=== PATIENT | female | born 1935 | race Caucasian/White ===

== ENCOUNTER → 2016-08-15 | Outpatient (CLI) | payer OTHER ==
[2016-08-15 08:54] LABS: Basophils # (auto) 0 uL; Basophils % (auto) 0.3 % (0.0-2.0); Eosinophils # (auto) 0.3 uL; Eosinophils % (auto) 3.1 % (0.0-7.0); Hematocrit 43.5 % (36.0-46.0); Hemoglobin 14.4 g/dL (12.2-16.2); Lymphocytes # (auto) 3.8 uL; Lymphocytes % (auto) 38.9 % (10.0-50.0); Mean Corpuscular Hemoglobin 28.2 pg (28.0-32.0); Mean Corpuscular Volume 85.6 fL (80.0-100.0); Mean Platelet Volume 9.4 fL (7.4-10.4); Monocytes # (auto) 0.5 uL; Monocytes % (auto) 5.4 % (0.0-12.0); Neutrophils # (auto) 5.2 uL; Neutrophils % (auto) 52.3 % (37.0-80.0); Platelet Count (auto) 290 10^3/uL (140-450); Red Cell Distribution Width 15.6 % (11.6-16.0); White Blood Cell 9.9 10^3/uL (4.4-10.8)
[2016-08-15 09:16] LABS: Potassium 4.1 mmol/L (3.5-5.1)
[2016-08-15 09:20] LABS: Albumin 3.8 g/dL (3.4-5.0); BUN/Creatinine Ratio 12.2; Calcium 9.1 mg/dL (8.5-10.1)
[2016-08-15 09:32] LABS: Bilirubin, Total 0.6 mg/dL (0.2-1.0); Total Protein 7.8 g/dL (6.4-8.2)
== END | disposition home or self-care (01) ==
LOC: LAB 06:44
PROVIDERS: ATTEND Internal Medicine
DX: I10 Essential (primary) hypertension (principal); E03.9 Hypothyroidism, unspecified; N18.3 Chronic kidney disease, stage 3 (moderate); Z12.11 Encounter for screening for malignant neoplasm of colon
CPT/HCPCS: 36415; 80053; 80061; 82043; 82270; 82306; 84443; 85025

== ENCOUNTER → 2017-02-13 | Outpatient (CLI) | payer OTHER ==
[2017-02-13 11:52] LABS: Albumin 3.7 g/dL (3.4-5.0); BUN/Creatinine Ratio 15.3; Bilirubin, Total 0.4 mg/dL (0.2-1.0); Calcium 9.2 mg/dL (8.5-10.1); Potassium 3.9 mmol/L (3.5-5.1); Total Protein 7.7 g/dL (6.4-8.2)
== END | disposition home or self-care (01) ==
LOC: LAB 09:51
PROVIDERS: ATTEND Internal Medicine
DX: I10 Essential (primary) hypertension (principal); E78.5 Hyperlipidemia, unspecified
CPT/HCPCS: 36415; 80053

== ENCOUNTER → 2017-05-12 | Outpatient (CLI) | payer OTHER ==
[2017-05-12 07:28] LABS: Basophils # (auto) 0 uL; Basophils % (auto) 0.4 % (0.0-2.0); Eosinophils # (auto) 0.3 uL; Eosinophils % (auto) 3.4 % (0.0-7.0); Hematocrit 44.7 % (36.0-46.0); Hemoglobin 14.7 g/dL (12.2-16.2); Lymphocytes # (auto) 3.3 uL; Lymphocytes % (auto) 38.2 % (10.0-50.0); Mean Corpuscular Hemoglobin 29.2 pg (28.0-32.0); Mean Corpuscular Volume 88.6 fL (80.0-100.0); Monocytes # (auto) 0.6 uL; Neutrophils # (auto) 4.4 uL; Nucleated Red Blood Cells % 0.1 %; Platelet Count (auto) 238 10^3/uL (140-450); Red Blood Cells 5.04 10^6/uL (4.0-5.20); White Blood Cell 8.6 10^3/uL (4.4-10.8)
[2017-05-12 08:30] LABS: Albumin 3.7 g/dL (3.4-5.0); BUN/Creatinine Ratio 14.1; Bilirubin, Total 0.4 mg/dL (0.2-1.0); Calcium 9.2 mg/dL (8.5-10.1); Potassium 4.1 mmol/L (3.5-5.1); Total Protein 7.8 g/dL (6.4-8.2)
== END | disposition home or self-care (01) ==
LOC: LAB 06:38
PROVIDERS: ATTEND Internal Medicine
DX: Z12.11 Encounter for screening for malignant neoplasm of colon (principal); I12.9 Hypertensive chronic kidney disease with stage 1 through stage 4 chronic kidney disease, or unspecified chronic kidney disease; N18.3 Chronic kidney disease, stage 3 (moderate); E78.5 Hyperlipidemia, unspecified
CPT/HCPCS: 36415; 80053; 80061; 82270; 82306; 85025

== ENCOUNTER → 2017-05-23 | Outpatient (CLI) | payer OTHER | END | disposition home or self-care (01) | LOC: LAB 10:13 | PROVIDERS: ATTEND Internal Medicine | DX: E03.9 Hypothyroidism, unspecified (principal) | CPT/HCPCS: 36415; 84443 ==

== ENCOUNTER → 2017-11-14 | Outpatient (CLI) | payer OTHER ==
[2017-11-14 08:52] LABS: Albumin 3.8 g/dL (3.4-5.0); BUN/Creatinine Ratio 9.9; Bilirubin, Total 0.5 mg/dL (0.2-1.0); Potassium 3.8 mmol/L (3.5-5.1); Total Protein 7.7 g/dL (6.4-8.2)
== END | disposition home or self-care (01) ==
LOC: LAB 07:17
PROVIDERS: ATTEND Internal Medicine
DX: I12.9 Hypertensive chronic kidney disease with stage 1 through stage 4 chronic kidney disease, or unspecified chronic kidney disease (principal); N18.3 Chronic kidney disease, stage 3 (moderate); E78.5 Hyperlipidemia, unspecified; E03.9 Hypothyroidism, unspecified
CPT/HCPCS: 36415; 80053

== ENCOUNTER → 2018-06-14 | Outpatient (CLI) | payer OTHER ==
[2018-06-14 07:35] LABS: Basophils # (auto) 0.1 uL; Basophils % (auto) 0.6 % (0.0-2.0); Eosinophils # (auto) 0.3 uL; Eosinophils % (auto) 3.2 % (0.0-7.0); Hematocrit 43.6 % (36.0-46.0); Hemoglobin 14.8 g/dL (12.2-16.2); Lymphocytes # (auto) 3.5 uL; Lymphocytes % (auto) 36.4 % (10.0-50.0); Mean Corpuscular Hemoglobin 30.4 pg (28.0-32.0); Mean Corpuscular Hgb Conc. 33.8 g/dL (32.0-36.0); Mean Corpuscular Volume 89.9 fL (80.0-100.0); Monocytes # (auto) 0.7 uL; Monocytes % (auto) 7.2 % (0.0-12.0); Neutrophils # (auto) 5.1 uL; Neutrophils % (auto) 52.6 % (37.0-80.0); Nucleated Red Blood Cells % 0.1 %; Platelet Count (auto) 233 10^3/uL (140-450); Red Blood Cells 4.85 10^6/uL (4.0-5.20); Red Cell Distribution Width 13.4 % (11.8-14.3); White Blood Cell 9.6 10^3/uL (4.4-10.8)
[2018-06-14 07:56] LABS: Albumin 3.7 g/dL (3.4-5.0); Calcium 9.5 mg/dL (8.5-10.1); Potassium 3.5 mmol/L (3.5-5.1)
[2018-06-14 07:59] LABS: BUN/Creatinine Ratio 11.4; Bilirubin, Total 0.7 mg/dL (0.2-1.0); Total Protein 7.6 g/dL (6.4-8.2)
== END | disposition home or self-care (01) ==
LOC: LAB 07:11
PROVIDERS: ATTEND Internal Medicine
DX: Z12.11 Encounter for screening for malignant neoplasm of colon (principal); E03.9 Hypothyroidism, unspecified; I12.9 Hypertensive chronic kidney disease with stage 1 through stage 4 chronic kidney disease, or unspecified chronic kidney disease; N18.3 Chronic kidney disease, stage 3 (moderate); E78.5 Hyperlipidemia, unspecified
CPT/HCPCS: 36415; 80053; 80061; 82274; 82306; 84443; 85025

== ENCOUNTER → 2018-06-29 | Outpatient (CLI) | payer OTHER | END | disposition home or self-care (01) | LOC: LAB 12:59 | PROVIDERS: ATTEND Internal Medicine | DX: K92.1 Melena (principal) | CPT/HCPCS: 82270 ==

== ENCOUNTER → 2019-06-12 | Outpatient (CLI) | payer OTHER ==
[2019-06-12 07:33] LABS: Basophils # (auto) 0 10 ^3/uL (0-0.2); Basophils % (auto) 0.5 % (0.0-2.0); Eosinophils # (auto) 0.2 10 ^3/uL (0-0.8); Eosinophils % (auto) 2.2 % (0.0-7.0); Hematocrit 43.8 % (36.0-46.0); Hemoglobin 14.8 g/dL (12.2-16.2); Lymphocytes # (auto) 3.3 10 ^3/uL (0.4-5.4); Lymphocytes % (auto) 36.6 % (10.0-50.0); Mean Corpuscular Hemoglobin 30.1 pg (28.0-32.0); Mean Corpuscular Hgb Conc. 33.9 g/dL (32.0-36.0); Mean Corpuscular Volume 88.7 fL (80.0-100.0); Monocytes # (auto) 0.6 10 ^3/uL (0-1.3); Monocytes % (auto) 6.9 % (0.0-12.0); Neutrophils # (auto) 4.8 10 ^3/uL (1.6-8.6); Neutrophils % (auto) 53.8 % (37.0-80.0); Platelet Count (auto) 210 10^3/uL (140-450); Red Blood Cells 4.93 10^6/uL (4.0-5.20); White Blood Cell 8.9 10^3/uL (4.4-10.8)
[2019-06-12 07:59] LABS: Albumin 3.7 g/dL (3.4-5.0); Calcium 8.7 mg/dL (8.5-10.1); Potassium 3.9 mmol/L (3.5-5.1)
[2019-06-12 08:03] LABS: BUN/Creatinine Ratio 11.7; Bilirubin, Total 0.6 mg/dL (0.2-1.0); Total Protein 7.6 g/dL (6.4-8.2)
== END | disposition home or self-care (01) ==
LOC: LAB 07:08
PROVIDERS: ATTEND Internal Medicine
DX: Z00.00 Encounter for general adult medical examination without abnormal findings (principal); I12.0 Hypertensive chronic kidney disease with stage 5 chronic kidney disease or end stage renal disease; N18.5 Chronic kidney disease, stage 5; E78.5 Hyperlipidemia, unspecified; Z12.11 Encounter for screening for malignant neoplasm of colon
CPT/HCPCS: 36415; 80053; 80061; 82274; 84443; 85025

== ENCOUNTER → 2020-04-02 | Outpatient (CLI) | payer OTHER ==
[2020-04-02 10:29] LABS: Albumin 3.7 g/dL (3.4-5.0); Calcium 8.8 mg/dL (8.5-10.1); Potassium 4.1 mmol/L (3.5-5.1)
[2020-04-02 10:32] LABS: Bilirubin, Total 0.5 mg/dL (0.2-1.0); Total Protein 7.6 g/dL (6.4-8.2)
== END | disposition home or self-care (01) ==
LOC: LAB 09:54
PROVIDERS: ATTEND Internal Medicine
DX: I12.9 Hypertensive chronic kidney disease with stage 1 through stage 4 chronic kidney disease, or unspecified chronic kidney disease (principal); N18.30 Chronic kidney disease, stage 3 unspecified; Z78.9 Other specified health status
CPT/HCPCS: 36415; 80053

== ENCOUNTER → 2020-06-15 | Outpatient (CLI) | payer OTHER ==
[2020-06-15 08:12] LABS: Basophils # (auto) 0 10 ^3/uL (0-0.2); Basophils % (auto) 0.3 % (0.0-2.0); Eosinophils # (auto) 0.3 10 ^3/uL (0-0.8); Eosinophils % (auto) 2.8 % (0.0-7.0); Hematocrit 42.1 % (36.0-46.0); Hemoglobin 14.1 g/dL (12.2-16.2); Lymphocytes # (auto) 3.6 10 ^3/uL (0.4-5.4); Lymphocytes % (auto) 40.3 % (10.0-50.0); Mean Corpuscular Hgb Conc. 33.6 g/dL (32.0-36.0); Mean Corpuscular Volume 89.3 fL (80.0-100.0); Monocytes # (auto) 0.7 10 ^3/uL (0-1.3); Monocytes % (auto) 7.6 % (0.0-12.0); Neutrophils # (auto) 4.4 10 ^3/uL (1.6-8.6); Nucleated Red Blood Cells % 0.1 %; Platelet Count (auto) 237 10^3/uL (140-450); Red Blood Cells 4.71 10^6/uL (4.0-5.20); Red Cell Distribution Width 14.4 % (11.8-14.3)
[2020-06-15 09:40] LABS: Albumin 3.5 g/dL (3.4-5.0); BUN/Creatinine Ratio 13.9; Bilirubin, Total 0.6 mg/dL (0.2-1.0); Calcium 9.4 mg/dL (8.5-10.1); Total Protein 7.3 g/dL (6.4-8.2)
== END | disposition home or self-care (01) ==
LOC: LAB 07:16
PROVIDERS: ATTEND Internal Medicine
DX: Z00.00 Encounter for general adult medical examination without abnormal findings (principal); Z12.11 Encounter for screening for malignant neoplasm of colon; I10 Essential (primary) hypertension; E78.5 Hyperlipidemia, unspecified
CPT/HCPCS: 36415; 80053; 80061; 82274; 84439; 84443; 85025

== ENCOUNTER → 2021-12-08 | Outpatient (CLI) | payer OTHER ==
[2021-12-08 10:58] LABS: Potassium 3.9 mmol/L (3.5-5.1)
[2021-12-08 11:05] LABS: Albumin 3.5 g/dL (3.4-5.0); BUN/Creatinine Ratio 9.6; Bilirubin, Total 0.5 mg/dL (0.2-1.0); Calcium 8.6 mg/dL (8.5-10.1); Total Protein 6.9 g/dL (6.4-8.2)
== END | disposition home or self-care (01) ==
LOC: LAB 09:50
PROVIDERS: ATTEND Internal Medicine
DX: I10 Essential (primary) hypertension (principal); E78.5 Hyperlipidemia, unspecified
CPT/HCPCS: 36415; 80053

== ENCOUNTER → 2022-07-18 | Outpatient (CLI) | payer OTHER ==
[2022-07-18 07:09] LABS: Basophils # (auto) 0 10 ^3/uL (0-0.2); Basophils % (auto) 0.1 % (0.0-2.0); Eosinophils # (auto) 0.3 10 ^3/uL (0-0.8); Eosinophils % (auto) 2.6 % (0.0-7.0); Hematocrit 44.3 % (36.0-46.0); Hemoglobin 14.9 g/dL (12.2-16.2); Lymphocytes # (auto) 4.3 10 ^3/uL (0.4-5.4); Lymphocytes % (auto) 41.8 % (10.0-50.0); Mean Corpuscular Hemoglobin 30.3 pg (28.0-32.0); Mean Corpuscular Hgb Conc. 33.6 g/dL (32.0-36.0); Mean Corpuscular Volume 90.3 fL (80.0-100.0); Monocytes # (auto) 0.6 10 ^3/uL (0-1.3); Monocytes % (auto) 6.1 % (0.0-12.0); Neutrophils # (auto) 5.1 10 ^3/uL (1.6-8.6); Neutrophils % (auto) 49.4 % (37.0-80.0); Red Blood Cells 4.91 10^6/uL (4.0-5.20); Red Cell Distribution Width 14.2 % (11.8-14.3); White Blood Cell 10.3 10^3/uL (4.4-10.8)
[2022-07-18 07:10] LABS: Urine Bacteria FEW /hpf (None Seen); Urine Blood Negative /uL (Negative); Urine Specific Gravity 1.011 (1.001-1.035); Urine WBC 5 /hpf (0 - 5)
[2022-07-18 07:29] LABS: Potassium 3.9 mmol/L (3.5-5.1)
[2022-07-18 07:48] LABS: Albumin 3.6 g/dL (3.4-5.0); BUN/Creatinine Ratio 11.8 (10.0-20.0); Bilirubin, Total 0.6 mg/dL (0.2-1.0); Calcium 9.5 mg/dL (8.5-10.1); Total Protein 7.4 g/dL (6.4-8.2)
== END | disposition home or self-care (01) ==
LOC: LAB 06:19
PROVIDERS: ATTEND Internal Medicine
DX: Z13.1 Encounter for screening for diabetes mellitus (principal); Z29.9 Encounter for prophylactic measures, unspecified; E03.9 Hypothyroidism, unspecified; E66.9 Obesity, unspecified
CPT/HCPCS: 36415; 80053; 80061; 81001; 83036; 84439; 84443; 85025

== ENCOUNTER → 2022-07-25 | Outpatient (CLI) | payer OTHER ==
[2022-07-25 10:47] LABS: Urine Bacteria NONE SEEN /hpf (None Seen); Urine Blood Negative /uL (Negative); Urine Mucus FEW (None Seen); Urine Specific Gravity 1.017 (1.001-1.035); Urine WBC 19 /hpf (0 - 5)
== END | disposition home or self-care (01) ==
LOC: LAB 10:22
PROVIDERS: ATTEND Internal Medicine
DX: R82.90 Unspecified abnormal findings in urine (principal)
CPT/HCPCS: 81001; 87086; 87088; 87186

== ENCOUNTER → 2024-03-19 | Outpatient (CLI) | payer OTHER ==
[2024-03-19 07:05] LABS: Basophils # (auto) 0 10 ^3/uL (0-0.2); Basophils % (auto) 0.3 % (0.0-2.0); Eosinophils # (auto) 0.3 10 ^3/uL (0-0.8); Eosinophils % (auto) 2.5 % (0.0-7.0); Hematocrit 47.3 % (36.0-46.0); Hemoglobin 15.8 g/dL (12.2-16.2); Lymphocytes # (auto) 4.7 10 ^3/uL (0.4-5.4); Lymphocytes % (auto) 41.3 % (10.0-50.0); Mean Corpuscular Hemoglobin 30.3 pg (28.0-32.0); Mean Corpuscular Hgb Conc. 33.5 g/dL (32.0-36.0); Mean Corpuscular Volume 90.7 fL (80.0-100.0); Monocytes # (auto) 0.8 10 ^3/uL (0-1.3); Monocytes % (auto) 6.7 % (0.0-12.0); Neutrophils # (auto) 5.6 10 ^3/uL (1.6-8.6); Neutrophils % (auto) 49.2 % (37.0-80.0); Platelet Count (auto) 227 10^3/uL (140-450); Red Blood Cells 5.22 10^6/uL (4.0-5.20); Red Cell Distribution Width 13.9 % (11.8-14.3); White Blood Cell 11.4 10^3/uL (4.4-10.8)
[2024-03-19 07:30] LABS: Albumin 4.4 g/dL (3.2-4.8); Alkaline Phosphatase 72 U/L (46-116); Anion Gap 9 (5-15); BUN/Creatinine Ratio 12.9 (10.0-20.0); Blood Urea Nitrogen 11 mg/dL (9-23); Calcium 10.2 mg/dL (8.7-10.4); Carbon Dioxide 30 mmol/L (20-31); Chloride 105 mmol/L (98-107); Potassium 4.3 mmol/L (3.5-5.1); Sodium 144 mmol/L (136-145)
[2024-03-19 07:31] LABS: Bilirubin, Total 0.8 mg/dL (0.2-1.0)
[2024-03-19 07:33] LABS: Alanine Aminotransferase 9 U/L (7-40); Aspartate Aminotransferase 11 U/L (13-40); Glucose 108 mg/dL (74-106)
[2024-03-19 08:03] LABS: Cholesterol 170 mg/dL (< 200); LDL Cholesterol 95 mg/dL (< 100)
[2024-03-19 08:04] LABS: HDL Cholesterol 50 mg/dL (40-59)
[2024-03-19 08:09] LABS: Triglycerides 233 mg/dL (< 150)
[2024-03-19 11:25] LABS: Urine Bacteria None Seen /hpf (None Seen)
[2024-03-19 12:23] LABS: Urine Blood Negative /uL (Negative); Urine Clarity Turbid (Clear); Urine Color Yellow (Yellow); Urine Mucus FEW (None Seen); Urine Protein, UAD 1+ (Negative); Urine Specific Gravity 1.026 (1.001-1.035); Urine Squamous Epithelial Cell FEW /hpf (<5); Urine Urobilinogen Normal (Negative); Urine WBC 27 /hpf (0 - 5); Urine pH 5.5 (5.0-9.0)
== END | disposition home or self-care (01) ==
LOC: LAB 06:31
PROVIDERS: ATTEND Internal Medicine
DX: Z00.01 Encounter for general adult medical examination with abnormal findings (principal); I12.9 Hypertensive chronic kidney disease with stage 1 through stage 4 chronic kidney disease, or unspecified chronic kidney disease; E78.2 Mixed hyperlipidemia; R73.03 Prediabetes; E03.9 Hypothyroidism, unspecified
CPT/HCPCS: 36415; 80053; 80061; 81001; 83036; 84439; 84443; 85025

== ENCOUNTER → 2024-06-25 | Outpatient (CLI) | payer OTHER ==
[2024-06-25 10:11] LABS: Basophils # (auto) 0 10 ^3/uL (0-0.2); Basophils % (auto) 0.2 % (0.0-2.0); Eosinophils # (auto) 0.2 10 ^3/uL (0-0.8); Eosinophils % (auto) 1.8 % (0.0-7.0); Hematocrit 44.9 % (36.0-46.0); Hemoglobin 14.7 g/dL (12.2-16.2); Lymphocytes # (auto) 3.1 10 ^3/uL (0.4-5.4); Lymphocytes % (auto) 30.5 % (10.0-50.0); Mean Corpuscular Hemoglobin 29.5 pg (28.0-32.0); Mean Corpuscular Hgb Conc. 32.6 g/dL (32.0-36.0); Mean Corpuscular Volume 90.3 fL (80.0-100.0); Monocytes # (auto) 0.7 10 ^3/uL (0-1.3); Neutrophils # (auto) 6.2 10 ^3/uL (1.6-8.6); Neutrophils % (auto) 60.5 % (37.0-80.0); Nucleated Red Blood Cells % 0.1 %; Platelet Count (auto) 213 10^3/uL (140-450); Red Blood Cells 4.97 10^6/uL (4.0-5.20); Red Cell Distribution Width 13.9 % (11.8-14.3); White Blood Cell 10.2 10^3/uL (4.4-10.8)
== END | disposition home or self-care (01) ==
LOC: LAB 08:53
PROVIDERS: ATTEND Internal Medicine
DX: E78.2 Mixed hyperlipidemia (principal); D72.829 Elevated white blood cell count, unspecified
CPT/HCPCS: 36415; 85025

== ENCOUNTER 2024-10-03 07:54 | Inpatient (IN) | payer OTHER ==
[~2024-10-03] VITALS: Ht 157.5 cm; Wt 76.9 kg
--- NOTE | 2024-10-03 08:29 | ED.PDOC ---
History of Present Illness HPI Comments Patient is a 88-year-old female with a medical history of hypothyroidism, hypertension, age-related macular degeneration presented with a chief complaint of generalized weakness and shortness of breath. She reports that since Monday morning she has been having shortness of breath and has not been able to go in a regular walk in the morning. Shortness of breath worsens on exertion. Patient also reports since the last 1 month she has been noticing blood in the toilet that whenever she goes to urinate early in the morning. Patient denied any chest pain, abdominal pain, palpitations, lower extremity pain. She is feeling weak and easily tired. Was arrival patient's blood pressure was 142/79 mmHg, heart rate 122 per minute and she was saturating 94% on room air. 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: Denies all ELECTRONIC FUNDS TRANSFER COORDINATOR Hx Family History Family History: Reviewed,noncontributory to illness Social History Smoker: Non-Smoker Alcohol: Denies ETOH Use Drugs: Denies Drug Use Lives In: Home Constitutional: reports: fatigue, weakness EENTM: denies: blurred vision, double vision, ear bleeding, ear discharge, ear drainage, ear pain, ear ringing, eye pain, eye redness, hearing loss, mouth pain, mouth swelling, nasal discharge, nose bleeding, nose congestion, nose pain, photophobia, tearing, throat pain, throat swelling, voice changes, others Respiratory: reports: shortness of breath, SOB with excertion Cardiovascular: denies: chest pain, dizzy spells, diaphoresis, Dyspnea on exertion, edema, irregular heart beat, left arm pain, lightheadedness, palpitations, PND, syncope, others Gastrointestinal: denies: abdomen distended, abdominal pain, blood streaked bowels, constipated, diarrhea, dysphagia, difficulty swallowing, hematemesis, melena, nausea, poor appetite, poor fluid intake, rectal bleeding, rectal pain, vomiting, others Genitourinary: reports: hematuria Neurological: denies: dizziness, fainting, headache, left sided numbness, left sided weakness, numbness, paresthesia, pre-existing deficit, right sided numbness, right sided weakness, seizure, speech problems, tingling, tremors, weakness, others Musculoskeletal: denies: back pain, gout, joint pain, joint swelling, muscle pain, muscle stiffness, neck pain, others Integumetry: denies: bruises, change in color, change in hair/nails, dryness, laceration, lesions, lumps, rash, wounds, others Allergic/Immunocompromised: denies: Difficulty Healing, Frequent Infections, Hives, Itching, others Hematologic/Lymphatic: denies: anemia, blood clots, easy bleeding, easy bruising, swollen glands, others Endocrine: denies: excessive hunger, excessive sweating, excessive thirst, excessive urination, flushing, intolerance to cold, intolerance to heat, unexplained weight gain, unexplained weight loss, others Psychiatric: denies: anxiety, bipolar disorder, depression, hopeless, panic disorder, schizophrenia, sleepless, suicidal, others Physical Exam General Appearance: Mild Distress HEENT: PERRL/EOMI, Pharynx Normal Neck: Full Range of Motion, Non-Tender, Normal Inspection Respiratory: Chest Non-Tender, Lungs Clear, Normal Breath Sounds, Respiratory Distress Cardiovascular: No Edema, No JVD, No Murmur, Regular Rate/Rhythm Breast Exam: Deferred Gastrointestinal: No Organomegaly, Non Tender, Normal Bowel Sounds Genitalia: Deferred Pelvic: Deferred Rectal: Deferred Extremities: Normal capillary refill, Normal range of motion, Non-tender, No pedal edema Neurologic: Alert, clerical coordinator II-XII nml as Tested, No Motor Deficits, No Sensory Deficits Cerebellar Function: NOT DONE Reflexes: NOT DONE Skin: Dry, Normal Color, Warm Peripheral Pulses: 2+ dorsalis pedis (R), 2+ dorsalis pedis (L), 2+ Radial (R), 2+ Radial (L) Lymphatic: NOT DONE Was a procedure done? Was a procedure done?: No EKG EKG : Pulse Rate (adult): 107 [place]: LAD Cardiac Rhythm: NSR Block: None Hypertrophy: None ST: Normal Differential Dx Considerations may include: anemia, uti, pneumonia, X-Ray, Labs, Meds, VS Vital Signs Date Time Temp Pulse Resp B/P (MAP) Pulse Ox O2 Delivery O2 Flow Rate FiO2 7/24/25 10:00 97.7 85 16 145/65 (91) 96 97.7 10/03/24 09:25 96 Nasal Cannula* 2 28 10/03/24 09:19 107 10/03/24 09:09 95 24 145/96 (112) 95 10/03/24 08:40 95 24 95 Nasal Cannula* 2 28 10/03/24 08:06 107 10/03/24 07:56 98.8 122 24 142/79 (100) 94 98.8 Lab Test 10/03/24 10:26 10/03/24 09:31 10/03/24 08:36 10/03/24 08:15 Range/Units Lactic Acid Level 2.5 *H 3.8 *H 0.4-2.0 mmol/L POC Glucose 129 H 70-106 mg/dl Urine Color Dark-red Yellow Urine Clarity Ex.turbid Clear Urine pH 6.0 5.0-9.0 Urine Specific [place] 1.029 1.001-1.035 Urine Protein 2+ H Negative Urine Ketones Negative Negative Urine Blood 3+ H Negative /uL Urine Nitrite Negative Negative Urine Bilirubin Negative Negative Urine Urobilinogen Normal Negative mg/dL Urine Leukocyte Esterase 1+ Negative /uL Urine RBC None seen 0 - 4 /hpf Urine Microscopic WBC 0-5 /HPF Urine Squamous Epithelial Cells None seen <5 /hpf Urine Bacteria None seen None Seen /hpf Urine Glucose Normal Normal mg/dL Test 10/03/24 08:11 Range/Units White Blood Count 12.3 H 4.4-10.8 10^3/uL Red Blood Count 3.62 L 4.0-5.20 10^6/uL Hemoglobin 10.4 L 12.2-16.2 g/dL Hematocrit 32.1 L 36.0-46.0 % Mean Corpuscular Volume 88.8 80.0-100.0 fL Mean Corpuscular Hemoglobin 28.7 28.0-32.0 pg Mean Corpuscular Hemoglobin Concent 32.3 32.0-36.0 g/dL Red Cell Distribution Width 14.1 11.8-14.3 % Platelet Count 319 140-450 10^3/uL Mean Platelet Volume 8.7 6.9-10.8 fL Neutrophils (%) (Auto) 59.8 37.0-80.0 % Lymphocytes (%) (Auto) 31.3 10.0-50.0 % Monocytes (%) (Auto) 6.5 0.0-12.0 % Eosinophils (%) (Auto) 2.1 0.0-7.0 % Basophils (%) (Auto) 0.3 0.0-2.0 % Neutrophils # (Auto) 7.3 1.6-8.6 10 ^3/uL Lymphocytes # (Auto) 3.8 0.4-5.4 10 ^3/uL Monocytes # (Auto) 0.8 0-1.3 10 ^3/uL Eosinophils # (Auto) 0.3 0-0.8 10 ^3/uL Basophils # (Auto) 0 0-0.2 10 ^3/uL Nucleated Red Blood Cells 0.0 % Sodium Level 143 136-145 mmol/L Potassium Level 3.3 L 3.5-5.1 mmol/L Chloride Level 106 98-107 mmol/L Carbon Dioxide Level 24 20-31 mmol/L Anion Gap 13 5-15 Blood Urea Nitrogen 9 9-23 mg/dL Creatinine 0.85 0.550-1.02 mg/dL Glomerular Filtration Rate Calc 66 >90 mL/min BUN/Creatinine Ratio 10.6 10.0-20.0 Serum Glucose 178 H 74-106 mg/dL Calcium Level 9.5 8.7-10.4 mg/dL B-Type Natriuretic Peptide 54.70 0-100 pg/mL Current Medications Medications (Trade) Dose Ordered Sig/Icsco Route Start Time Stop Time Status Last Admin Sodium Chloride 500 ml @ 500 mls/hr Q1H ONCE IV 10/03/24 08:30 10/03/24 09:29 DC 10/03/24 08:43 Ceftriaxone Sodium 50 ml @ 100 mls/hr ONCE ONCE IV 10/03/24 09:30 10/03/24 10:27 DC 10/03/24 10:53 Sodium Chloride 1,000 ml @ 1,000 mls/hr Q1H ONCE IV 10/03/24 09:30 10/03/24 10:29 DC 10/03/24 10:54 Potassium Bicarbonate (Klor-Con/Ef) 25 meq ONCE ONCE PO 10/03/24 09:45 10/03/24 10:27 DC 10/03/24 10:53 Patient is a 88-year-old female came in with generalized weakness and shortness of breath. Patient had clear lung sounds on physical examination and regular S1-S2 were heard. Patient did not have any abdominal tenderness, chest pain, cough/phlegm. Initial labs showed anemia with the elevated white blood cell count and elevated lactic acid. Patient was tachycardic and had increased respiratory rate a following which blood cultures were drawn and she was given IV antibiotics and IV fluids under the suspected sepsis protocol. Urine was dark red in color and on analysis showed 3+ blood. CT abdomen pelvis with IV contrast was done and results are pending. Patient will need further inpatient management Time of 1ST Reevaluation: 09:45 Reevaluation 1ST: Improved Patient Education/Counseling: Diagnosis, Treatment Family Education/Counseling: Diagnosis, Treatment SEPSIS Sepsis Screen Date sepsis recognized/suspect: Oct 03, 2024 Time Sepsis recognized/suspect: 755 Recent Procedure: No On Antibiotic Therapy: No Respiratory Rate >20: No Heart Rate >90: Yes Temp<36 C (96.8 F) or >38.3 C: No SBP <90 or MAP <65 mmHG: No New Acute Mental Status Change: No Is the patient on CPAP, BIPAP,: No Physician Orders Electrocardigram (10/03/24 08:14) Chest Xray 1 View (10/03/24 08:17) Blood Culture (10/03/24 08:17) Heplock Iv (10/03/24 ) Urine Bacterial Culture (10/03/24 09:29) Vancomycin Per Pharmacy (10/03/24 09:30) Covid19 Antigen Shira (10/03/24 ) Rapid Influenza A&B (10/03/24 09:35) Ct Ab Pel Wo Con-No Oral Or Iv (10/03/24 10:48) Ct Ab Pel With Iv Con Only (10/03/24 11:00) Vancomycin 1gm/200ml Pm (10/03/24 11:45) Vancomycin,Random (10/04/24 04:00) Creatinine (10/04/24 04:00) Vital Signs Date Time Temp Pulse Resp B/P (MAP) Pulse Ox O2 Delivery O2 Flow Rate FiO2 10/03/24 10:00 97.7 85 16 145/65 (91) 96 97.7 10/03/24 09:25 96 Nasal Cannula* 2 28 10/03/24 09:19 107 10/03/24 09:09 95 24 145/96 (112) 95 10/03/24 08:40 95 24 95 Nasal Cannula* 2 28 10/03/24 08:06 107 10/03/24 07:56 98.8 122 24 142/79 (100) 94 98.8 Laboratory Tests Test 10/03/24 08:11 10/03/24 08:36 10/03/24 10:26 White Blood Count 12.3 10^3/uL (4.4-10.8) H Lactic Acid Level 3.8 mmol/L (0.4-2.0) *H 2.5 mmol/L (0.4-2.0) *H Medications Medications Dose Ordered Sig/Cisco Route Start Time Stop Time Status Last Admin Dose Admin Ceftriaxone Sodium 50 ml @ 100 mls/hr ONCE ONCE IV 10/03/24 09:30 10/03/24 10:27 DC 10/03/24 10:53 Potassium Bicarbonate 25 meq ONCE ONCE PO 10/03/24 09:45 10/03/24 10:27 DC 10/03/24 10:53 Sodium Chloride 500 ml @ 500 mls/hr Q1H ONCE IV 10/03/24 08:30 10/03/24 09:29 DC 10/03/24 08:43 Sodium Chloride 1,000 ml @ 1,000 mls/hr Q1H ONCE IV 10/03/24 09:30 10/03/24 10:29 DC 10/03/24 10:54 Departure 1 Departure Time of Disposition: 11:50 Impression: Primary Impression: Generalized weakness Additional Impression: Shortness of breath Disposition: ADMITTED INPATIENT Condition: Stable Critical Care Note Critical Care Time?: No Stability Stability form required: No Heart Score Heart Score: Heart Score Response (Comments) Value History N/A 0 EKG N/A 0 Age N/A 0 Risk Factors N/A 0 Troponin N/A 0 Total 0 DUSTIN SÁNCHEZ RESIDENT Oct 03, 2024 08:28
[2024-10-03 08:40] VITALS: PULSE 95; RESP 24; O2SAT 95
[2024-10-03 08:41] LABS: Hematocrit 32.1 % (36.0-46.0); Hemoglobin 10.4 g/dL (12.2-16.2); Mean Corpuscular Hemoglobin 28.7 pg (28.0-32.0); Mean Corpuscular Volume 88.8 fL (80.0-100.0); Nucleated Red Blood Cells % 0.0 %
[2024-10-03] MEDS: SODIUM CHLORIDE 0.9% 500 ML IV ONE (08:43)
[2024-10-03 08:47] LABS: Chloride 106 mmol/L (98-107); Sodium 143 mmol/L (136-145)
[2024-10-03 08:48] LABS: Anion Gap 13 (5-15); Calcium 9.5 mg/dL (8.7-10.4); Carbon Dioxide 24 mmol/L (20-31); Potassium 3.3 mmol/L (3.5-5.1)
[2024-10-03 08:53] LABS: BUN/Creatinine Ratio 10.6 (10.0-20.0); Blood Urea Nitrogen 9 mg/dL (9-23)
[2024-10-03 08:56] LABS: Glucose 178 mg/dL (74-106)
--- NOTE | 2024-10-03 09:11 | DVH ---
EXAM: XY CHEST XRAY 1 VIEW Indication: SOB Technique: Single frontal view of the chest was obtained Comparison: None FINDINGS: Lines and Tubes: None Lungs: No focal consolidation. Pleura: No effusion. No pneumothorax. Cardiomediastinal contours: Unremarkable. Atherosclerotic vascular calcifications of the thoracic ao rta are noted. Bones: No acute osseous abnormality. IMPRESSION: No acute cardiopulmonary disease.
[2024-10-03 09:14] LABS: Lactic Acid w/Reflex 3.8 mmol/L (0.4-2.0)
[2024-10-03] MEDS ORDERED: VANCOMYCIN PER PHARMACY 0 MG IV SCH (09:30)
[2024-10-03] MEDS: cefTRIAXone 1GM/50ML D5W 50 ML IV ONE (10:53)
[2024-10-03] MEDS: POTASSIUM EFFERVESENT TAB 25 MEQ PO ONE (10:53)
[2024-10-03] MEDS: SODIUM CHLORIDE 0.9% 1,000 ML IV ONE (10:54)
[2024-10-03 11:06] LABS: Urine Protein, UAD 2+ (Negative)
--- NOTE | 2024-10-03 12:17 | DVH ---
Exam: CT CT AB PEL WITH IV CON ONLY History: painless hematuria COMPARISON: None Technique: Multidetector spiral CT of the abdomen and pelvis was performed from lung bases to pubic s ymphysis. Intravenous contrast was administered during this examination. Portal venous imaging was o btained. Axial, coronal and sagittal multiplanar reformats were performed by the technologist on a [id number] workstation. Radiation Dose : 1. Abdomen/Pelvis: CTDIvol 21.43mGy, DLP 1169.19 mGy*cm. Findings: Lung Bases: No acute or significant lung base finding. Normal heart size. No pleural or pericardial effusion. Liver: The liver is normal in size. No focal lesions. Normal hepatic vascular enhancement. Gallbladder and Biliary Tree: Gallbladder is surgically absent. Spleen: Unremarkable Pancreas: The pancreas is normal in appearance without focal lesions or abnormal enhancement. Adrenal Glands: Unremarkable Kidneys: No hydronephrosis. Bladder: Unremarkable Bowel: The stomach is grossly normal in appearance. Diverticulosis. The appendix is not visualized; h owever, no secondary findings of acute appendicitis identified. Ascites: Absent Lymphadenopathy: Right inguinal lymph node measures 2.3 cm. Abdominal Wall and Mesentery: Unremarkable. Vasculature: The visualized abdominal aorta is normal in size and caliber. There is calcified atheros clerotic plaque involving the aorta and its branches. Abdominal and pelvic vessels demonstrate normal enhancement. Pelvic Organs: Unremarkable Musculoskeletal: No aggressive focal bony lesions, acute fractures or dislocation. Degenerative chavira es of the spine. IMPRESSION: Prominent right inguinal lymph node measures 2.3 cm; nonspecific. Diverticulosis.
[2024-10-03] MEDS ORDERED: ACETAMINOPHEN 325 MG TAB PO PRN (14:30)
[2024-10-03] MEDS ORDERED: ONDANSETRON HCL 4 MG/2 ML VIAL IV PRN (14:30)
[2024-10-03 14:59] LABS: Iron 26.0 ug/dL (50-170); Total Iron Binding Capacity 290.0 ug/dL (250-425)
[2024-10-03 17:00] VITALS: BP 138/72; PULSE 86; RESP 16; TEMP 97.7; O2SAT 90
[2024-10-03] MEDS ORDERED: LEVO88CA3 PO (17:32)
[2024-10-03] MEDS ORDERED: ALBU1NEB5 IN (17:32)
[2024-10-03] MEDS ORDERED: METO-289 PO (17:32)
[2024-10-03] MEDS ORDERED: SIMV20TA20 PO (17:32)
--- NOTE | 2024-10-03 19:09 | ECG ---
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
--- NOTE | 2024-10-03 19:38 | DVHHP2 ---
History of Present Illness Reason for Visit: Blood in the urine History of Present Illness 88-year-old female presents for evaluation of hematuria. Patient reports for the past month noticing blood in her urine when urinating early in the morning. She also reports generalized weakness with mild shortness for breath. Denies chest pain or palpitations. No fever or chills. No abdominal pain. Past Medical History Thyroid, hypertension, dyslipidemia Past Surgical History Hysterectomy, cholecystectomy Family History Noncontributory Smoke: No ALCOHOL: none Drugs: None Lives: with Family Review of Systems Review of Systems Review of systems are currently negative otherwise addressed in HPI. Allergies: Coded Allergies: NO KNOWN ALLERGIES (Unverified , 10/03/24) Medications Current Medications Medications Dose Ordered Sig/Cisco Route Start Time Stop Time Status Last Admin Dose Admin Vancomycin HCl 0 ml @ 0 mls/hr UD IV 10/03/24 09:30 Ceftriaxone Sodium 50 ml @ 100 mls/hr DAILY@09 IV 10/04/24 09:00 Ondansetron HCl 4 mg Q4HP PRN IV 10/03/24 14:30 Acetaminophen 650 mg Q6HP PRN PO 10/03/24 14:30 Exam Vital Signs Vital Signs Date Time Temp Pulse Resp B/P (MAP) Pulse Ox O2 Delivery O2 Flow Rate FiO2 10/03/24 17:00 97.7 86 16 138/72 (94) 90 97.7 10/03/24 15:40 Room Air* 0 21 Exam Gen: 88-year-old female in mild distress Skin: Warm, dry, normal color and texture, no rash. HEENT: Normocephalic atraumatic, mucous membranes moist and pink. Neck: Cervical and supraclavicular nodes normal without enlargement, trachea is midline, thyroid gland is normal without masses. Pulmonary: Clear to auscultation and percussion bilaterally. Cardiac: Regular rate and rhythm. No murmur Abdomen: Soft, nontender, nondistended, bowel sounds present all 4 quadrants, no guarding, no rigidity, no organomegaly. Extremities: No cyanosis, clubbing, no edema Neuro: Cranial nerves II through XII grossly intact, normal affect and speech, no focal motor deficits. Labs/Xrays ORDERING PHYSICIAN: DUSTIN SÁNCHEZ RESIDENT PROCEDURE(s): CXR1 - CHEST XRAY 1 VIEW REASON: SOB ORDER NUMBER(s): [id number], ACCESSION NUMBER(s): [id number] EXAM: XY CHEST XRAY 1 VIEW Indication: SOB Technique: Single frontal view of the chest was obtained Comparison: None FINDINGS: Lines and Tubes: None Lungs: No focal consolidation. Pleura: No effusion. No pneumothorax. Cardiomediastinal contours: Unremarkable. Atherosclerotic vascular calcifications of the thoracic aorta are noted. Bones: No acute osseous abnormality. IMPRESSION: No acute cardiopulmonary disease. RING PHYSICIAN: DUSTIN SÁNCHEZ RESIDENT PROCEDURE(s): ABPLIV - CT AB PEL WITH IV CON ONLY REASON: painless hematuria ORDER NUMBER(s): [id number], ACCESSION NUMBER(s): [id number] Exam: CT CT AB PEL WITH IV CON ONLY History: painless hematuria COMPARISON: None Technique: Multidetector spiral CT of the abdomen and pelvis was performed from lung bases to pubic symphysis. Intravenous contrast was administered during this examination. Portal venous imaging was obtained. Axial, coronal and sagittal multiplanar reformats were performed by the technologist on a separate workstation. Radiation Dose : 1. Abdomen/Pelvis: CTDIvol 21.43mGy, DLP 1169.19 mGy*cm. Findings: Lung Bases: No acute or significant lung base finding. Normal heart size. No pleural or pericardial effusion. Liver: The liver is normal in size. No focal lesions. Normal hepatic vascular enhancement. Gallbladder and Biliary Tree: Gallbladder is surgically absent. Spleen: Unremarkable Pancreas: The pancreas is normal in appearance without focal lesions or abnormal enhancement. Adrenal Glands: Unremarkable Kidneys: No hydronephrosis. Bladder: Unremarkable Bowel: The stomach is grossly normal in appearance. Diverticulosis. The appendix is not visualized; however, no secondary findings of acute appendicitis identified. Ascites: Absent Lymphadenopathy: Right inguinal lymph node measures 2.3 cm. Abdominal Wall and Mesentery: Unremarkable. Vasculature: The visualized abdominal aorta is normal in size and caliber. There is calcified atherosclerotic plaque involving the aorta and its branches. Abdominal and pelvic vessels demonstrate normal enhancement. Pelvic Organs: Unremarkable Musculoskeletal: No aggressive focal bony lesions, acute fractures or dislocation. Degenerative changes of the spine. IMPRESSION: Prominent right inguinal lymph node measures 2.3 cm; nonspecific. Diverticulosis. Labs Test 10/03/24 10:26 10/03/24 09:31 10/03/24 08:15 10/03/24 08:11 Range/Units Lactic Acid Level 2.5 *H 0.4-2.0 mmol/L POC Glucose 129 H 70-106 mg/dl Urine Color Dark-red Yellow Urine Clarity Ex.turbid Clear Urine pH 6.0 5.0-9.0 Urine Specific [place] 1.029 1.001-1.035 Urine Protein 2+ H Negative Urine Ketones Negative Negative Urine Blood 3+ H Negative /uL Urine Nitrite Negative Negative Urine Bilirubin Negative Negative Urine Urobilinogen Normal Negative mg/dL Urine Leukocyte Esterase 1+ Negative /uL Urine RBC None seen 0 - 4 /hpf Urine Microscopic WBC 0-5 /HPF Urine Squamous Epithelial Cells None seen <5 /hpf Urine Bacteria None seen None Seen /hpf Urine Glucose Normal Normal mg/dL White Blood Count 12.3 H 4.4-10.8 10^3/uL Red Blood Count 3.62 L 4.0-5.20 10^6/uL Hemoglobin 10.4 L 12.2-16.2 g/dL Hematocrit 32.1 L 36.0-46.0 % Mean Corpuscular Volume 88.8 80.0-100.0 fL Mean Corpuscular Hemoglobin 28.7 28.0-32.0 pg Mean Corpuscular Hemoglobin Concent 32.3 32.0-36.0 g/dL Red Cell Distribution Width 14.1 11.8-14.3 % Platelet Count 319 140-450 10^3/uL Mean Platelet Volume 8.7 6.9-10.8 fL Neutrophils (%) (Auto) 59.8 37.0-80.0 % Lymphocytes (%) (Auto) 31.3 10.0-50.0 % Monocytes (%) (Auto) 6.5 0.0-12.0 % Eosinophils (%) (Auto) 2.1 0.0-7.0 % Basophils (%) (Auto) 0.3 0.0-2.0 % Neutrophils # (Auto) 7.3 1.6-8.6 10 ^3/uL Lymphocytes # (Auto) 3.8 0.4-5.4 10 ^3/uL Monocytes # (Auto) 0.8 0-1.3 10 ^3/uL Eosinophils # (Auto) 0.3 0-0.8 10 ^3/uL Basophils # (Auto) 0 0-0.2 10 ^3/uL Nucleated Red Blood Cells 0.0 % Sodium Level 143 136-145 mmol/L Potassium Level 3.3 L 3.5-5.1 mmol/L Chloride Level 106 98-107 mmol/L Carbon Dioxide Level 24 20-31 mmol/L Anion Gap 13 5-15 Blood Urea Nitrogen 9 9-23 mg/dL Creatinine 0.85 0.550-1.02 mg/dL Glomerular Filtration Rate Calc 66 >90 mL/min BUN/Creatinine Ratio 10.6 10.0-20.0 Serum Glucose 178 H 74-106 mg/dL Calcium Level 9.5 8.7-10.4 mg/dL Iron Level 26 L 50-170 ug/dL Total Iron Binding Capacity 290 250-425 ug/dL Percent Iron Saturation 9.0 L 15-50 % B-Type Natriuretic Peptide 54.70 0-100 pg/mL SEPSIS Sepsis Screen Date sepsis recognized/suspect: Oct 03, 2024 Time Sepsis recognized/suspect: 921 Recent Procedure: No On Antibiotic Therapy: No Respiratory Rate >20: Yes Heart Rate >90: Yes Temp<36 C (96.8 F) or >38.3 C: No SBP <90 or MAP <65 mmHG: No New Acute Mental Status Change: No Is the patient on CPAP, BIPAP,: No Physician Orders Vancomycin,Random (10/04/24 04:00) Creatinine (10/04/24 04:00) * Urology Consult (10/03/24 14:27) Ceftriaxone 1gm/50ml D5w (Rocephin) (10/04/24 09:00) Admit (10/03/24 14:27) Ondansetron Hcl (Zofran) (10/03/24 14:30) Complete Blood Count (10/04/24 04:00) Cardiac Diet-2gna,Lofat,Lochol (10/03/24 Dinner) Condition: Stable (10/03/24 14:27) Acetaminophen Tablet (Tylenol Tablet) (10/03/24 14:30) Bedrest With Bathroom Privileg (10/03/24 14:27) Basic Metabolic Panel (10/04/24 04:00) Stool Occult Blood (10/03/24 14:27) Vital Signs Date Time Temp Pulse Resp B/P (MAP) Pulse Ox O2 Delivery O2 Flow Rate FiO2 10/03/24 17:00 97.7 86 16 138/72 (94) 90 97.7 10/03/24 15:40 Room Air* 0 21 10/03/24 14:00 77 16 150/67 (94) 97 10/03/24 12:00 93 16 152/83 (106) 97 Laboratory Tests Test 10/03/24 08:11 10/03/24 08:36 10/03/24 10:26 White Blood Count 12.3 10^3/uL (4.4-10.8) H Lactic Acid Level 3.8 mmol/L (0.4-2.0) *H 2.5 mmol/L (0.4-2.0) *H Medications Medications Dose Ordered Sig/Cisco Route Start Time Stop Time Status Last Admin Dose Admin Ceftriaxone Sodium 50 ml @ 100 mls/hr ONCE ONCE IV 10/03/24 09:30 10/03/24 10:27 DC 10/03/24 10:53 100 MLS/HR Potassium Bicarbonate 25 meq ONCE ONCE PO 10/03/24 09:45 10/03/24 10:27 DC 10/03/24 10:53 25 MEQ Sodium Chloride 500 ml @ 500 mls/hr Q1H ONCE IV 10/03/24 08:30 10/03/24 09:29 DC 10/03/24 08:43 500 MLS/HR Sodium Chloride 1,000 ml @ 1,000 mls/hr Q1H ONCE IV 10/03/24 09:30 10/03/24 10:29 DC 10/03/24 10:54 1,000 MLS/HR Vancomycin HCl 200 ml @ 200 mls/hr ONCE ONCE IV 10/03/24 11:45 10/03/24 12:44 DC 10/03/24 12:11 200 MLS/HR Assessment/Plan Assessment/Plan Assessment Hematuria Mild anemia Generalized weakness Electrolyte imbalance Urinary tract infection Plan Admit the patient to [facility] [place] the hospitalist Urology consultation Replete electrolytes Rocephin Continue treatment per orders. Plan discussed with: Patient My Orders Orders - ALY,THERESA AGACNP Procedure Category Date Status Time * Urology Consult CONS 10/03/24 Transmitted 14:27 Ceftriaxone 1gm/50ml PHA 10/04/24 In Process D5w (Rocephin) 09:00 Admit ADMIT 10/03/24 Transmitted 14:27 Ondansetron Hcl PHA 10/03/24 In Process (Zofran) 14:30 Complete Blood Count LAB 10/04/24 Verified 04:00 Cardiac DIET 10/03/24 Transmitted Diet-2gna,Lofat,Lochol Dinner Condition: Stable DOMINIK 10/03/24 In Process 14:27 Acetaminophen Tablet PHA 10/03/24 In Process (Tylenol Tablet) 14:30 Bedrest With Bathroom DOMINIK 10/03/24 In Process Privileg 14:27 Basic Metabolic Panel LAB 10/04/24 Verified 04:00 Stool Occult Blood LAB 10/03/24 Logged 14:27 Date of Service: Oct 03, 2024 Billing Provider: MARA ALY Common Visit Codes: [id number] INP/OBS CARE (MOD) MARA ALY Oct 03, 2024 19:38
[2024-10-03] MEDS ORDERED: ALBUTEROL SULF 2.5 MG/0.5ML(0.5%) NEB SOLN NEB PRN (19:45)
[2024-10-03 21:00] VITALS: BP 130/67; PULSE 80; RESP 18; TEMP 97.9; O2SAT 96
[2024-10-03] MEDS: ATORVASTATIN 20 MG TAB PO SCH (21:15)
[2024-10-03 22:13] LABS: COVID19 ANTIGEN SOFIA FIA NEGATIVE (NEGATIVE)
[2024-10-04] VITALS (11 sets, daily range): BP systolic 119–154; BP diastolic 64–79; PULSE 72–91; RESP 16–21; TEMP 97.9–99.8; O2SAT 93–100
[2024-10-04] MEDS: LEVOTHYROXINE SODIUM 88 MCG TAB PO SCH (05:19)
[2024-10-04 06:42] LABS: Potassium 3.7 mmol/L (3.5-5.1)
[2024-10-04 06:43] LABS: Anion Gap 8 (5-15); Carbon Dioxide 28 mmol/L (20-31); Chloride 109 mmol/L (98-107); Sodium 145 mmol/L (136-145)
[2024-10-04 06:46] LABS: Hematocrit 28.2 % (36.0-46.0); Hemoglobin 9.4 g/dL (12.2-16.2); Mean Corpuscular Hemoglobin 29.4 pg (28.0-32.0); Mean Corpuscular Volume 88.4 fL (80.0-100.0); Nucleated Red Blood Cells % 0.0 %
[2024-10-04 06:48] LABS: BUN/Creatinine Ratio 10.5 (10.0-20.0); Blood Urea Nitrogen 6 mg/dL (9-23); Calcium 8.5 mg/dL (8.7-10.4); Glucose 103 mg/dL (74-106)
[2024-10-04] MEDS: METOPROLOL SUCCINATE XL 50 MG TAB PO SCH (09:36)
[2024-10-04] MEDS: cefTRIAXone 1GM/50ML D5W 50 ML IV SCH (10:50)
--- NOTE | 2024-10-04 12:14 | DVHPN2 ---
Subjective The patient seen and examined at bedside. Multiple family member there and they have lots of question. Per patient she is not sure blood come from urine? or vaginal bleed. She said she had a hysterectomy done when she was 38 yo due to uterine cancer. No chemo or radiation done at that time. She doesn't know if ovaries was removed? She state that for 2 months, she has intermittent bleeding that every time she went to the bathroom to urinate, the toilet bowel is full of blood, bright red blood. It happens couple times per week. Reviewed: Care Plan, H&P, Labs, Medications, Previous Orders, Radiology Changes from previous H/P or p: No Changes Objective Vitals Vital Signs Date Time Temp Pulse Resp B/P (MAP) Pulse Ox O2 Delivery O2 Flow Rate FiO2 10/04/24 09:36 72 154/73 10/04/24 09:00 98.0 19 95 98.0 10/04/24 08:00 Room Air* 0 21 Intake/Output Intake and Output 10/04/24 07:00 Intake Total 2350 ml Balance 2350 ml Intake Oral 600 ml IV Total 1750 ml # Voids 2 General Appearance: Alert, Oriented X3, Cooperative, No acute distress HEENT: Atraumatic, PERRLA, EOMI, Mucous membr. moist/pink Neck: Supple Lungs: Clear to auscultation, Normal air movement Cardiovascular: Regular rate, Normal S1, Normal S2, No murmurs, Gallops, Rubs Neuro: Cranial nerves 3-12 NL Psych/Mental Status: Mental status NL Medications Current Medications Medications Dose Ordered Sig/Cisco Route Start Time Stop Time Status Last Admin Dose Admin Vancomycin HCl 0 ml @ 0 mls/hr UD IV 10/03/24 09:30 Ceftriaxone Sodium 50 ml @ 100 mls/hr DAILY@09 IV 10/04/24 09:00 10/04/24 10:50 100 MLS/HR Ondansetron HCl 4 mg Q4HP PRN IV 10/03/24 14:30 Acetaminophen 650 mg Q6HP PRN PO 10/03/24 14:30 Levothyroxine Sodium 88 mcg QAM@0600 PO 10/04/24 06:00 10/04/24 05:19 88 MCG Metoprolol Succinate 50 mg DAILY PO 10/04/24 10:00 10/04/24 09:36 50 MG Atorvastatin Calcium 20 mg HS PO 10/03/24 22:00 10/03/24 21:15 20 MG Albuterol 2.5 mg Q6HPRN PRN NEB 10/03/24 19:45 Laboratory Results Laboratory Tests 10/04/24 05:42 Chemistry Test 10/04/24 05:42 Calcium Level 8.5 mg/dL (8.7-10.4) L Urinalysis Test 10/03/24 08:15 Urine Color Dark-red (Yellow) Urine Clarity Ex.turbid (Clear) Urine pH 6.0 (5.0-9.0) Urine Specific [place] 1.029 (1.001-1.035) Urine Protein 2+ (Negative) H Urine Ketones Negative (Negative) Urine Blood 3+ /uL (Negative) H Urine Nitrite Negative (Negative) Urine Bilirubin Negative (Negative) Urine Urobilinogen Normal mg/dL (Negative) Urine Leukocyte Esterase 1+ /uL (Negative) Urine RBC None seen /hpf (0 - 4) Urine Microscopic WBC /HPF (0-5) Urine Squamous Epithelial Cells None seen /hpf (<5) Urine Bacteria None seen /hpf (None Seen) Urine Glucose Normal mg/dL (Normal) Microbiology Microbiology Date/Time Source Procedure Growth Status 10/03/24 08:36 Blood Blood Culture - Preliminary NO GROWTH AFTER 24 HOURS OF INCUBATION. Resulted 10/03/24 08:15 Voided Urine Urine Culture - Preliminary Resulted Labs and/or images reviewed: Labs reviewed by me Assessment/Plan Assessment/Plan Hematuria Mild anemia Generalized weakness Electrolyte imbalance Urinary tract infection Right lymph node per CT, need further investigation. History of uterine cancer, status post total hysterectomy. Continue current management. 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 versus hematuria? She said sometime she see blood dripping out of her diaper from vagina. Continue IV abx Waiting for urologist to see the patient DW family and answer all of question that they have to their satisfy Plan discussed with: Patient Date of Service: Oct 04, 2024 Billing Provider: VERNA ALLISON MD Common Visit Codes: [id number] INP/OBS CARE(HIGH) VERNA ALLISON MD Oct 04, 2024 12:14
[2024-10-04] MEDS: VANCOMYCIN 1GM/200ML PM 200 ML IV ONE (17:41)
--- NOTE | 2024-10-04 19:01 | DVH ---
Technique: Real-time ultrasound images through the pelvis using a transabdominal transducer. For bett er evaluation of the ovaries and endometrial stripe, an endovaginal transducer was used. Indication: VAGINAL BLEED Comparison: 10/03/2024 CT abdomen pelvis Findings: The uterus is nonvisualized consistent with hysterectomy. Left ovary nonvisualized. Right ovary nonvisualized. In the right inguinal region, there is an echogenic lesion measuring 3.8 x 1.8 cm, possibly a patholo gical lymph node There is no significant free fluid in the pelvis. Impression: 3.8 cm right inguinal region echogenic lesion measuring 3.8 cm, possibly a pathological lymph node. Further evaluation with PET scan/tissue sampling can be obtained. Hysterectomy. Bilateral ovaries not visualized.
--- NOTE | 2024-10-04 20:20 | DVHINCON2 ---
Date of service: Oct 04, 2024 Referring Physician Hospitalist Reason for Consultation Gross hematuria History of Present Illness 88-year-old female presents for evaluation of gross hematuria. Patient reports for the past month noticing blood in her urine when urinating early in the m orning that started off as spotting and progressively gotten worse. She also reports generalized weakness, decreased appetite, fatigue, and mild shortness for breath. Denies prior history of hematuria, recurrent UTI's, or stones. No fever, chills, or abdominal pain. Past Medical History Thyroid, HTN, dyslipidemia Past Surgical History Remote history of CA that led to a hysterectomy, but unsure of what cancer type. cholecystectomy Family History: Patient reports no known family medical history. Social History Quit smoking 35 years ago. Allergies: Coded Allergies: NO KNOWN ALLERGIES (Unverified , 10/03/24) Home Meds Reported Medications Albuterol Sulfate (Albuterol Sulfate (5 mg/ml) 0.5%) 1 Neb Neb, 1 NEB IN, INH 10/03/24 Simvastatin (Simvastatin) 20 Mg Tab, 20 MG PO, TAB 10/03/24 Metoprolol Succinate (Metoprolol Succinate Er) 50 Mg Tab, 50 MG PO, TAB 10/03/24 Levothyroxine Sodium (Levothyroxine Sodium) 88 Mcg Cap, 88 MCG PO, CAP 10/03/24 Current Medications Current Medications Medications (Trade) Dose Ordered Sig/Cisco Route PRN Reason Start Time Stop Time Status Last Admin Ceftriaxone Sodium 50 ml @ 100 mls/hr DAILY@09 IV 10/04/24 09:00 10/04/24 10:50 Levothyroxine Sodium (Synthroid Tablet) 88 mcg QAM@0600 PO 10/04/24 06:00 10/04/24 05:19 Metoprolol Succinate (Toprol Xl) 50 mg DAILY PO 10/04/24 10:00 10/04/24 09:36 Atorvastatin Calcium (Lipitor) 20 mg HS PO 10/03/24 22:00 10/03/24 21:15 Vital Signs Vital Signs Date Time Temp Pulse Resp B/P (MAP) Pulse Ox O2 Delivery O2 Flow Rate FiO2 10/04/24 17:00 99.8 80 20 119/71 (87) 93 99.8 10/04/24 08:00 Room Air* 0 21 Urinalysis Test 10/03/24 08:15 Urine Color Dark-red (Yellow) Urine Clarity Ex.turbid (Clear) Urine pH 6.0 (5.0-9.0) Urine Specific [place] 1.029 (1.001-1.035) Urine Protein 2+ (Negative) H Urine Ketones Negative (Negative) Urine Blood 3+ /uL (Negative) H Urine Nitrite Negative (Negative) Urine Bilirubin Negative (Negative) Urine Urobilinogen Normal mg/dL (Negative) Urine Leukocyte Esterase 1+ /uL (Negative) Urine RBC None seen /hpf (0 - 4) Urine Microscopic WBC /HPF (0-5) Urine Squamous Epithelial Cells None seen /hpf (<5) Urine Bacteria None seen /hpf (None Seen) Urine Glucose Normal mg/dL (Normal) Microbiology Microbiology Date/Time Source Procedure Growth Status 10/03/24 08:36 Blood Blood Culture - Preliminary NO GROWTH AFTER 24 HOURS OF INCUBATION. Resulted 10/03/24 08:15 Voided Urine Urine Culture - Preliminary Resulted Physical Exam Exam Gen: Alert, Oriented X3. Cooperative. In no distress Skin: Warm, dry, normal color and texture, no rash. HEENT: Mucous membranes moist and pink. Lungs: Clear to auscultation, Normal air movement Cardiac: Regular rate and rhythm. No murmur Abdomen: Soft, nontender, nondistended, no CVA tenderness. : No suprapubic tenderness or palpable bladder Labs/Xrays ORDERING PHYSICIAN: DUSTIN SÁNCHEZ PROCEDURE(s): CXR1 - CHEST XRAY 1 VIEW REASON: SOB ORDER NUMBER(s): [id number], ACCESSION NUMBER(s): [id number] EXAM: XY CHEST XRAY 1 VIEW Indication: SOB Technique: Single frontal view of the chest was obtained Comparison: None FINDINGS: Lines and Tubes: None Lungs: No focal consolidation. Pleura: No effusion. No pneumothorax. Cardiomediastinal contours: Unremarkable. Atherosclerotic vascular calcifications of the thoracic aorta are noted. Bones: No acute osseous abnormality. IMPRESSION: No acute cardiopulmonary disease. RING PHYSICIAN: DUSTIN SÁNCHEZ PROCEDURE(s): ABPLIV - CT AB PEL WITH IV CON ONLY REASON: painless hematuria ORDER NUMBER(s): [id number], ACCESSION NUMBER(s): [id number] Exam: CT CT AB PEL WITH IV CON ONLY History: painless hematuria COMPARISON: None Technique: Multidetector spiral CT of the abdomen and pelvis was performed from lung bases to pubic symphysis. Intravenous contrast was administered during this examination. Portal venous imaging was obtained. Axial, coronal and sagittal multiplanar reformats were performed by the technologist on a separate workstation. Radiation Dose : 1. Abdomen/Pelvis: CTDIvol 21.43mGy, DLP 1169.19 mGy*cm. Findings: Lung Bases: No acute or significant lung base finding. Normal heart size. No pleural or pericardial effusion. Liver: The liver is normal in size. No focal lesions. Normal hepatic vascular enhancement. Gallbladder and Biliary Tree: Gallbladder is surgically absent. Spleen: Unremarkable Pancreas: The pancreas is normal in appearance without focal lesions or abnormal enhancement. Adrenal Glands: Unremarkable Kidneys: No hydronephrosis. Bladder: Unremarkable Bowel: The stomach is grossly normal in appearance. Diverticulosis. The appendix is not visualized; however, no secondary findings of acute appendicitis identified. Ascites: Absent Lymphadenopathy: Right inguinal lymph node measures 2.3 cm. Abdominal Wall and Mesentery: Unremarkable. Vasculature: The visualized abdominal aorta is normal in size and caliber. There is calcified atherosclerotic plaque involving the aorta and its branches. Abdominal and pelvic vessels demonstrate normal enhancement. Pelvic Organs: Unremarkable Musculoskeletal: No aggressive focal bony lesions, acute fractures or dislocation. Degenerative changes of the spine. IMPRESSION: Prominent right inguinal lymph node measures 2.3 cm; nonspecific. Diverticulosis. Labs/Diagnostic Data Labs Test 10/04/24 05:42 10/03/24 21:35 10/03/24 21:30 10/03/24 10:26 Range/Units White Blood Count 7.2 # 4.4-10.8 10^3/uL Red Blood Count 3.19 L 4.0-5.20 10^6/uL Hemoglobin 9.4 L 12.2-16.2 g/dL Hematocrit 28.2 #L 36.0-46.0 % Mean Corpuscular Volume 88.4 80.0-100.0 fL Mean Corpuscular Hemoglobin 29.4 28.0-32.0 pg Mean Corpuscular Hemoglobin Concent 33.3 32.0-36.0 g/dL Red Cell Distribution Width 13.9 11.8-14.3 % Platelet Count 229 140-450 10^3/uL Mean Platelet Volume 8.6 6.9-10.8 fL Neutrophils (%) (Auto) 62.0 37.0-80.0 % Lymphocytes (%) (Auto) 24.5 10.0-50.0 % Monocytes (%) (Auto) 9.7 0.0-12.0 % Eosinophils (%) (Auto) 3.5 0.0-7.0 % Basophils (%) (Auto) 0.3 0.0-2.0 % Neutrophils # (Auto) 4.4 1.6-8.6 10 ^3/uL Lymphocytes # (Auto) 1.8 0.4-5.4 10 ^3/uL Monocytes # (Auto) 0.7 0-1.3 10 ^3/uL Eosinophils # (Auto) 0.3 0-0.8 10 ^3/uL Basophils # (Auto) 0 0-0.2 10 ^3/uL Nucleated Red Blood Cells 0.0 % Sodium Level 145 136-145 mmol/L Potassium Level 3.7 3.5-5.1 mmol/L Chloride Level 109 H 98-107 mmol/L Carbon Dioxide Level 28 20-31 mmol/L Anion Gap 8 5-15 Blood Urea Nitrogen 6 L 9-23 mg/dL Creatinine 0.57 # 0.550-1.02 mg/dL Glomerular Filtration Rate Calc 87 >90 mL/min BUN/Creatinine Ratio 10.5 10.0-20.0 Serum Glucose 103 74-106 mg/dL Calcium Level 8.5 L 8.7-10.4 mg/dL Random Vancomycin Level < 3.0 L 5-10 ug/mL Influenza Type A Antigen Negative Negative Influenza Type B Antigen Negative Negative SARS-CoV-2 Antigen (Rapid) Negative NEGATIVE Lactic Acid Level 2.5 *H 0.4-2.0 mmol/L Test 10/03/24 09:31 10/03/24 08:15 10/03/24 08:11 Range/Units POC Glucose 129 H 70-106 mg/dl Urine Color Dark-red Yellow Urine Clarity Ex.turbid Clear Urine pH 6.0 5.0-9.0 Urine Specific [place] 1.029 1.001-1.035 Urine Protein 2+ H Negative Urine Ketones Negative Negative Urine Blood 3+ H Negative /uL Urine Nitrite Negative Negative Urine Bilirubin Negative Negative Urine Urobilinogen Normal Negative mg/dL Urine Leukocyte Esterase 1+ Negative /uL Urine RBC None seen 0 - 4 /hpf Urine Microscopic WBC 0-5 /HPF Urine Squamous Epithelial Cells None seen <5 /hpf Urine Bacteria None seen None Seen /hpf Urine Glucose Normal Normal mg/dL Iron Level 26 L 50-170 ug/dL Total Iron Binding Capacity 290 250-425 ug/dL Percent Iron Saturation 9.0 L 15-50 % B-Type Natriuretic Peptide 54.70 0-100 pg/mL Microbiology Date/Time Source Procedure Growth Status 10/03/24 08:36 Blood Blood Culture - Preliminary NO GROWTH AFTER 24 HOURS OF INCUBATION. Resulted 10/03/24 08:15 Voided Urine Urine Culture - Preliminary Resulted Assessment Painless gross hematuria, no active bleeding visualized at time of exam Mild anemia, likely related to ongoing blood loss Generalized weakness, possibly anemia History of smoking (quit 35 years ago), which increases risk for bladder cancer Problems(with codes): (1) Hematuria (2) Generalized weakness (3) Shortness of breath Plan/Recommendation Place Gonzalez catheter to evaluate for hematuria vs vaginal bleeding Monitor urine output and color every shift and irrigate as needed if clots present Monitor H/H daily and transfuse per protocol. Will need urology follow-up for outpatient cystoscopy once clinically stable for d/c Plan discussed with: Patient, Daughter AMANDA COOPERDAVID Gupta CURTAINS AND DRAPERIES SALESPERSON Oct 04, 2024 20:20
[2024-10-04] MEDS: LORazepam 2MG/ML-1ML VIAL IV ONE (22:29)
[2024-10-05 08:47] VITALS: BP 155/80; PULSE 71; RESP 16; TEMP 97.5; O2SAT 94
[2024-10-05] MEDS: VANCOMYCIN 500mg/100mL 100 ML IV ONE (11:30)
[2024-10-05 13:00] VITALS: BP 157/85; PULSE 78; RESP 16; TEMP 97.9; O2SAT 90
--- NOTE | 2024-10-05 15:43 | DVHPN2 ---
Subjective The patient seen and examined at bedside. The patient feel better, daughter and son at bedside. They has lots of questions. Reviewed: Care Plan, H&P, Labs, Medications, Previous Orders, Radiology Changes from previous H/P or p: No Changes Objective Vitals Vital Signs Date Time Temp Pulse Resp B/P (MAP) Pulse Ox O2 Delivery O2 Flow Rate FiO2 10/05/24 13:00 97.9 78 16 157/85 (109) 90 97.9 10/04/24 20:15 Nasal Cannula* 2 28 Intake/Output Intake and Output 10/05/24 07:00 Intake Total 950 ml Balance 950 ml Intake Oral 900 ml IV Total 50 ml General Appearance: Alert, Oriented X3, Cooperative, No acute distress HEENT: Atraumatic, PERRLA, EOMI, Mucous membr. moist/pink Neck: Supple Lungs: Clear to auscultation, Normal air movement Cardiovascular: Regular rate, Normal S1, Normal S2, No murmurs, Gallops, Rubs Neuro: Cranial nerves 3-12 NL Psych/Mental Status: Mental status NL Medications Current Medications Medications Dose Ordered Sig/Cisco Route Start Time Stop Time Status Last Admin Dose Admin Vancomycin HCl 0 ml @ 0 mls/hr UD IV 10/03/24 09:30 Ceftriaxone Sodium 50 ml @ 100 mls/hr DAILY@09 IV 10/04/24 09:00 10/05/24 09:50 100 MLS/HR Ondansetron HCl 4 mg Q4HP PRN IV 10/03/24 14:30 Acetaminophen 650 mg Q6HP PRN PO 10/03/24 14:30 Levothyroxine Sodium 88 mcg QAM@0600 PO 10/04/24 06:00 10/05/24 05:58 88 MCG Metoprolol Succinate 50 mg DAILY PO 10/04/24 10:00 10/05/24 09:47 50 MG Atorvastatin Calcium 20 mg HS PO 10/03/24 22:00 10/04/24 22:29 20 MG Albuterol 2.5 mg Q6HPRN PRN NEB 10/03/24 19:45 Vancomycin HCl 100 ml @ 200 mls/hr Q12H IV 10/05/24 18:00 Laboratory Results Laboratory Tests 10/04/24 05:42 10/05/24 06:00 Urinalysis Test 10/03/24 08:15 Urine Color Dark-red (Yellow) Urine Clarity Ex.turbid (Clear) Urine pH 6.0 (5.0-9.0) Urine Specific [place] 1.029 (1.001-1.035) Urine Protein 2+ (Negative) H Urine Ketones Negative (Negative) Urine Blood 3+ /uL (Negative) H Urine Nitrite Negative (Negative) Urine Bilirubin Negative (Negative) Urine Urobilinogen Normal mg/dL (Negative) Urine Leukocyte Esterase 1+ /uL (Negative) Urine RBC None seen /hpf (0 - 4) Urine Microscopic WBC /HPF (0-5) Urine Squamous Epithelial Cells None seen /hpf (<5) Urine Bacteria None seen /hpf (None Seen) Urine Glucose Normal mg/dL (Normal) Microbiology Microbiology Date/Time Source Procedure Growth Status 10/03/24 08:36 Blood Blood Culture - Preliminary NO GROWTH AFTER 48 HOURS OF INCUBATION. Resulted 10/03/24 08:15 Voided Urine Urine Culture - Final Complete Labs and/or images reviewed: Labs reviewed by me Assessment/Plan Assessment/Plan ?Hematuria Mild anemia Generalized weakness Electrolyte imbalance Urinary tract infection Right lymph node per CT, need further investigation. History of uterine cancer, status post total hysterectomy. Continue current management. Gonzalez has been place by urologist. Did not show any hematuria. Her urine is still clear. The patient adamant that at home , her urine clear in the morning and gross hematuria at night??? US of pelvis showed: 3.8 cm right inguinal region echogenic lesion measuring 3.8 cm, possibly a pathological lymph node. Further evaluation with PET scan/tissue sampling can be obtained. Hysterectomy. Bilateral ovaries not visualized. 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 Continue IV abx Will consult IR for biopsy of the right inguinal lymph node to rule out malignant. DW family and answer all of question that they have to their satisfy Plan discussed with: Patient, Daughter, Son Date of Service: Oct 05, 2024 Billing Provider: VERNA ALLISON MD Common Visit Codes: [id number] INP/OBS CARE(HIGH) VERNA ALLISON MD Oct 05, 2024 15:43
[2024-10-05 16:37] VITALS: BP 156/79; PULSE 68; RESP 17; TEMP 98.3; O2SAT 98
[2024-10-05 17:57] LABS: Hematocrit 30.5 % (36.0-46.0); Hemoglobin 9.8 g/dL (12.2-16.2); Mean Corpuscular Hemoglobin 28.7 pg (28.0-32.0); Mean Corpuscular Volume 89.3 fL (80.0-100.0); Nucleated Red Blood Cells % 0.0 %
[2024-10-05 18:04] LABS: Chloride 106 mmol/L (98-107); Potassium 3.6 mmol/L (3.5-5.1); Sodium 143 mmol/L (136-145)
[2024-10-05 18:05] LABS: Anion Gap 10 (5-15); Carbon Dioxide 27 mmol/L (20-31)
[2024-10-05 18:06] LABS: Calcium 8.8 mg/dL (8.7-10.4)
[2024-10-05 18:10] LABS: BUN/Creatinine Ratio 8.9 (10.0-20.0)
[2024-10-05 18:11] LABS: Blood Urea Nitrogen 5 mg/dL (9-23); Glucose 106 mg/dL (74-106)
[2024-10-05] MEDS: VANCOMYCIN 500mg/100mL 100 ML IV SCH (18:20)
[2024-10-05 19:40] VITALS: O2SAT 94
[2024-10-05 21:00] VITALS: BP 149/70; PULSE 71; RESP 18; TEMP 98.1; O2SAT 96
[2024-10-06] VITALS (8 sets, daily range): BP systolic 130–165; BP diastolic 67–84; PULSE 68–95; RESP 16–18; TEMP 97.1–99.2; O2SAT 90–99
[2024-10-06 06:27] LABS: Hematocrit 27.2 % (36.0-46.0); Hemoglobin 9.1 g/dL (12.2-16.2); Mean Corpuscular Hemoglobin 29.3 pg (28.0-32.0); Mean Corpuscular Volume 87.3 fL (80.0-100.0); Nucleated Red Blood Cells % 0.0 %
[2024-10-06 06:41] LABS: Anion Gap 7 (5-15); Carbon Dioxide 30 mmol/L (20-31); Chloride 106 mmol/L (98-107); Potassium 4.0 mmol/L (3.5-5.1); Sodium 143 mmol/L (136-145)
[2024-10-06 06:42] LABS: Calcium 9.4 mg/dL (8.7-10.4)
[2024-10-06 06:47] LABS: BUN/Creatinine Ratio 11.3 (10.0-20.0); Glucose 101 mg/dL (74-106)
[2024-10-06 06:49] LABS: Blood Urea Nitrogen 7 mg/dL (9-23)
--- NOTE | 2024-10-06 12:32 | DVHPN2 ---
Subjective The patient seen and examined at bedside. The patient feel better, granddaughter at bedside. Gonzalez show no gross hematuria. Reviewed: Care Plan, H&P, Labs, Medications, Previous Orders, Radiology Changes from previous H/P or p: No Changes Objective Vitals Vital Signs Date Time Temp Pulse Resp B/P (MAP) Pulse Ox O2 Delivery O2 Flow Rate FiO2 10/06/24 10:39 74 160/70 10/06/24 08:54 98 Nasal Cannula 2.0 10/06/24 08:54 28 10/06/24 08:37 97.1 16 97.1 Intake/Output Intake and Output 10/06/24 07:00 Intake Total 1450 ml Output Total 900 ml Balance 550 ml Intake Oral 1200 ml IV Total 250 ml Output Urine Total 900 ml # Voids 1 General Appearance: Alert, Oriented X3, Cooperative, No acute distress HEENT: Atraumatic, PERRLA, EOMI, Mucous membr. moist/pink Neck: Supple Lungs: Clear to auscultation, Normal air movement Cardiovascular: Regular rate, Normal S1, Normal S2, No murmurs, Gallops, Rubs Neuro: Cranial nerves 3-12 NL Psych/Mental Status: Mental status NL Medications Current Medications Medications Dose Ordered Sig/Cisco Route Start Time Stop Time Status Last Admin Dose Admin Vancomycin HCl 0 ml @ 0 mls/hr UD IV 10/03/24 09:30 Ceftriaxone Sodium 50 ml @ 100 mls/hr DAILY@09 IV 10/04/24 09:00 10/06/24 10:31 100 MLS/HR Ondansetron HCl 4 mg Q4HP PRN IV 10/03/24 14:30 Acetaminophen 650 mg Q6HP PRN PO 10/03/24 14:30 Levothyroxine Sodium 88 mcg QAM@0600 PO 10/04/24 06:00 10/06/24 06:21 88 MCG Metoprolol Succinate 50 mg DAILY PO 10/04/24 10:00 10/06/24 10:39 50 MG Atorvastatin Calcium 20 mg HS PO 10/03/24 22:00 10/05/24 20:51 20 MG Albuterol 2.5 mg Q6HPRN PRN NEB 10/03/24 19:45 Vancomycin HCl 100 ml @ 200 mls/hr Q12H IV 10/05/24 18:00 10/06/24 06:22 200 MLS/HR Laboratory Results Laboratory Tests 10/06/24 05:44 Chemistry Test 10/05/24 17:49 10/06/24 05:44 Calcium Level 8.8 mg/dL (8.7-10.4) 9.4 mg/dL (8.7-10.4) Urinalysis Test 10/03/24 08:15 Urine Color Dark-red (Yellow) Urine Clarity Ex.turbid (Clear) Urine pH 6.0 (5.0-9.0) Urine Specific [place] 1.029 (1.001-1.035) Urine Protein 2+ (Negative) H Urine Ketones Negative (Negative) Urine Blood 3+ /uL (Negative) H Urine Nitrite Negative (Negative) Urine Bilirubin Negative (Negative) Urine Urobilinogen Normal mg/dL (Negative) Urine Leukocyte Esterase 1+ /uL (Negative) Urine RBC None seen /hpf (0 - 4) Urine Microscopic WBC /HPF (0-5) Urine Squamous Epithelial Cells None seen /hpf (<5) Urine Bacteria None seen /hpf (None Seen) Urine Glucose Normal mg/dL (Normal) Microbiology Microbiology Date/Time Source Procedure Growth Status 10/03/24 08:36 Blood Blood Culture - Preliminary NO GROWTH AFTER 72 HOURS OF INCUBATION. Resulted 10/03/24 08:15 Voided Urine Urine Culture - Final Complete Labs and/or images reviewed: Labs reviewed by me Assessment/Plan Assessment/Plan ?Hematuria Mild anemia Generalized weakness Electrolyte imbalance Urinary tract infection Right lymph node per CT, need further investigation. History of uterine cancer, status post total hysterectomy. Continue current management. Gonzalez has been place by urologist. Did not show any hematuria. Her urine is still clear. The patient adamant that at home , her urine clear in the morning and gross hematuria at night??? US of pelvis showed: 3.8 cm right inguinal region echogenic lesion measuring 3.8 cm, possibly a pathological lymph node. Further evaluation with PET scan/tissue sampling can be obtained. Hysterectomy. Bilateral ovaries not visualized. 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 Continue IV abx Will consult IR for biopsy of the right inguinal lymph node to rule out malignant. DW family and answer all of question that they have to their satisfy Plan discussed with: Patient, Other (granddaughter.) My Orders Orders - VERNA ALLISON MD Procedure Category Date Status Time * Distribution Field Technician Consultation CONS 10/05/24 Transmitted 16:47 Complete Blood Count LAB 10/07/24 Verified 05:00 Basic Metabolic Panel LAB 10/07/24 Verified 05:00 Date of Service: Oct 06, 2024 Billing Provider: VERNA ALLISON MD Common Visit Codes: [id number] INP/OBS CARE(HIGH) VERNA ALLISON MD Oct 06, 2024 12:32
--- NOTE | 2024-10-06 14:33 | DVHINCON2 ---
Date of service: Oct 06, 2024 Referring Physician Glenna Norman MD Reason for Consultation Vaginal bleeding History of Present Illness HPI 88y female, hx of "cervical cancer" s/p MALGORZATA at age 28 Patient presented with genitourinary bleeding. Had had hematuria off and on x 1 month Denies pain. Pelvic CT and Pelvic US c/w hysterectomy status, right enlarged inguinal node ON exam, patient has a large 4-5cm indurated mass of right vulva. Vulva externally with white discoloration and severe leukoplakia , suspicious for vulvar cancer. Home Meds Reported Medications Albuterol Sulfate (Albuterol Sulfate (5 mg/ml) 0.5%) 1 Neb Neb, 1 NEB IN, INH 10/03/24 Simvastatin (Simvastatin) 20 Mg Tab, 20 MG PO, TAB 10/03/24 Metoprolol Succinate (Metoprolol Succinate Er) 50 Mg Tab, 50 MG PO, TAB 10/03/24 Levothyroxine Sodium (Levothyroxine Sodium) 88 Mcg Cap, 88 MCG PO, CAP 10/03/24 Past Medical History Patient Family History: Patient reports no known family medical history. H&P Exam Vital Signs Vital Signs Date Time Temp Pulse Resp B/P (MAP) Pulse Ox O2 Delivery O2 Flow Rate FiO2 10/06/24 12:37 98.3 71 16 152/84 (106) 90 98.3 10/06/24 08:54 Nasal Cannula 2.0 10/06/24 08:54 28 General Appeara: Well nourished, Normal Appearance Head Exam: Normal inspection Pelvic Exam: Lesions ((see HPI)) Labs/Xrays Labs Test 10/06/24 05:44 10/05/24 06:00 10/03/24 21:35 10/03/24 21:30 Range/Units White Blood Count 9.0 4.4-10.8 10^3/uL Red Blood Count 3.12 L 4.0-5.20 10^6/uL Hemoglobin 9.1 L 12.2-16.2 g/dL Hematocrit 27.2 #L 36.0-46.0 % Mean Corpuscular Volume 87.3 80.0-100.0 fL Mean Corpuscular Hemoglobin 29.3 28.0-32.0 pg Mean Corpuscular Hemoglobin Concent 33.5 32.0-36.0 g/dL Red Cell Distribution Width 13.7 11.8-14.3 % Platelet Count 244 140-450 10^3/uL Mean Platelet Volume 8.4 6.9-10.8 fL Neutrophils (%) (Auto) 60.3 37.0-80.0 % Lymphocytes (%) (Auto) 27.8 10.0-50.0 % Monocytes (%) (Auto) 8.1 0.0-12.0 % Eosinophils (%) (Auto) 3.5 0.0-7.0 % Basophils (%) (Auto) 0.3 0.0-2.0 % Neutrophils # (Auto) 5.4 1.6-8.6 10 ^3/uL Lymphocytes # (Auto) 2.5 0.4-5.4 10 ^3/uL Monocytes # (Auto) 0.7 0-1.3 10 ^3/uL Eosinophils # (Auto) 0.3 0-0.8 10 ^3/uL Basophils # (Auto) 0 0-0.2 10 ^3/uL Nucleated Red Blood Cells 0.0 % Sodium Level 143 136-145 mmol/L Potassium Level 4.0 3.5-5.1 mmol/L Chloride Level 106 98-107 mmol/L Carbon Dioxide Level 30 20-31 mmol/L Anion Gap 7 5-15 Blood Urea Nitrogen 7 L 9-23 mg/dL Creatinine 0.62 0.550-1.02 mg/dL Glomerular Filtration Rate Calc 86 >90 mL/min BUN/Creatinine Ratio 11.3 10.0-20.0 Serum Glucose 101 74-106 mg/dL Calcium Level 9.4 8.7-10.4 mg/dL Random Vancomycin Level 6.6 5-10 ug/mL Influenza Type A Antigen Negative Negative Influenza Type B Antigen Negative Negative SARS-CoV-2 Antigen (Rapid) Negative NEGATIVE Test 10/03/24 10:26 10/03/24 09:31 10/03/24 08:15 10/03/24 08:11 Range/Units Lactic Acid Level 2.5 *H 0.4-2.0 mmol/L POC Glucose 129 H 70-106 mg/dl Urine Color Dark-red Yellow Urine Clarity Ex.turbid Clear Urine pH 6.0 5.0-9.0 Urine Specific [place] 1.029 1.001-1.035 Urine Protein 2+ H Negative Urine Ketones Negative Negative Urine Blood 3+ H Negative /uL Urine Nitrite Negative Negative Urine Bilirubin Negative Negative Urine Urobilinogen Normal Negative mg/dL Urine Leukocyte Esterase 1+ Negative /uL Urine RBC None seen 0 - 4 /hpf Urine Microscopic WBC 0-5 /HPF Urine Squamous Epithelial Cells None seen <5 /hpf Urine Bacteria None seen None Seen /hpf Urine Glucose Normal Normal mg/dL Iron Level 26 L 50-170 ug/dL Total Iron Binding Capacity 290 250-425 ug/dL Percent Iron Saturation 9.0 L 15-50 % B-Type Natriuretic Peptide 54.70 0-100 pg/mL Microbiology Date/Time Source Procedure Growth Status 10/03/24 08:36 Blood Blood Culture - Preliminary NO GROWTH AFTER 72 HOURS OF INCUBATION. Resulted 10/03/24 08:15 Voided Urine Urine Culture - Final Complete Assessment/Plan Admitting Diagnosis: Acute vaginal bleeding due to suspicious right vulvar mass. 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 Please coordinate outpatient follow up with [facility] Needs tissue biopsy of vulva and possibly of right inguinal lymph node by IR Consider work up for metastasis, PET scan Prognosis, is guarded Treatment based on histological confirmation of malignancy and staging, which may include a combination of surgery (vulvectomy, radical lymphadenectomy, +/- Cisplatin chemo and radiation) Family also asked about palliative treatment given patients age HAND COPER will sign off Thank you for allowing me to participate in the care of this patient. Plan discussed with: Patient, Daughter Date of Service: Oct 06, 2024 Billing Provider: DAVIS WEBER DO Common Visit Codes: CONSULT ONLY Consultation Codes: [id number] CONSULT <60MIN DAVIS WEBER DO Oct 06, 2024 14:33
[2024-10-06] MEDS ORDERED: LORazepam 0.5 MG TAB PO PRN (17:15)
[2024-10-06 18:25] LABS: Urine Protein, UAD TRACE (Negative)
[2024-10-07] VITALS (10 sets, daily range): BP systolic 134–158; BP diastolic 69–83; PULSE 66–80; RESP 16–18; TEMP 97.9–99.2; O2SAT 94–98
[2024-10-07 07:03] LABS: Hematocrit 27.1 % (36.0-46.0); Hemoglobin 9.1 g/dL (12.2-16.2); Mean Corpuscular Hemoglobin 29.3 pg (28.0-32.0); Mean Corpuscular Volume 87.3 fL (80.0-100.0); Nucleated Red Blood Cells % 0.0 %
[2024-10-07 07:13] LABS: Anion Gap 9 (5-15); Carbon Dioxide 30 mmol/L (20-31); Chloride 105 mmol/L (98-107); Potassium 3.7 mmol/L (3.5-5.1); Sodium 144 mmol/L (136-145)
[2024-10-07 07:14] LABS: Calcium 9.4 mg/dL (8.7-10.4)
[2024-10-07 07:19] LABS: BUN/Creatinine Ratio 10.0 (10.0-20.0); Glucose 99 mg/dL (74-106)
[2024-10-07 07:20] LABS: Blood Urea Nitrogen 6 mg/dL (9-23)
--- NOTE | 2024-10-07 11:25 | DVHPN2 ---
Subjective The patient seen and examined at bedside. The patient feel better, daughter at bedside. Gabriel show no gross hematuria. Reviewed: Care Plan, H&P, Labs, Medications, Previous Orders, Radiology Changes from previous H/P or p: No Changes Objective Vitals Vital Signs Date Time Temp Pulse Resp B/P (MAP) Pulse Ox O2 Delivery O2 Flow Rate FiO2 10/07/24 09:47 66 134/70 10/07/24 09:00 98.0 16 95 98.0 10/07/24 06:48 Nasal Cannula* 1 24 Intake/Output Intake and Output 10/07/24 07:00 Intake Total 1700 ml Output Total 1850 ml Balance -150 ml Intake Oral 1600 ml IV Total 100 ml Output Urine Total 1850 ml General Appearance: Alert, Oriented X3, Cooperative, No acute distress HEENT: Atraumatic, PERRLA, EOMI, Mucous membr. moist/pink Neck: Supple Lungs: Clear to auscultation, Normal air movement Cardiovascular: Regular rate, Normal S1, Normal S2, No murmurs, Gallops, Rubs Neuro: Cranial nerves 3-12 NL Psych/Mental Status: Mental status NL Medications Current Medications Medications Dose Ordered Sig/Cisco Route Start Time Stop Time Status Last Admin Dose Admin Ceftriaxone Sodium 50 ml @ 100 mls/hr DAILY@09 IV 10/04/24 09:00 10/07/24 09:46 100 MLS/HR Ondansetron HCl 4 mg Q4HP PRN IV 10/03/24 14:30 Acetaminophen 650 mg Q6HP PRN PO 10/03/24 14:30 Levothyroxine Sodium 88 mcg QAM@0600 PO 10/04/24 06:00 10/07/24 06:00 88 MCG Metoprolol Succinate 50 mg DAILY PO 10/04/24 10:00 10/07/24 09:47 50 MG Atorvastatin Calcium 20 mg HS PO 10/03/24 22:00 10/06/24 21:17 20 MG Albuterol 2.5 mg Q6HPRN PRN NEB 10/03/24 19:45 Hydralazine HCl 10 mg Q6HP PRN IV 10/06/24 17:15 Lorazepam 0.5 mg Q6HP PRN PO 10/06/24 17:15 Laboratory Results Laboratory Tests 10/07/24 05:43 Chemistry Test 10/07/24 05:43 Calcium Level 9.4 mg/dL (8.7-10.4) Urinalysis Test 10/06/24 18:12 Urine Color Light-yellow (Yellow) Urine Clarity Clear (Clear) Urine pH 5.5 (5.0-9.0) Urine Specific [place] 1.015 (1.001-1.035) Urine Protein Trace (Negative) H Urine Ketones 1+ (Negative) H Urine Blood 3+ /uL (Negative) H Urine Nitrite Negative (Negative) Urine Bilirubin Negative (Negative) Urine Urobilinogen Normal mg/dL (Negative) Urine Leukocyte Esterase 2+ /uL (Negative) Urine RBC 100 /hpf (0 - 4) Urine Microscopic WBC 32 /HPF (0-5) H Urine Squamous Epithelial Cells Few /hpf (<5) Urine Bacteria None seen /hpf (None Seen) Urine Mucus Few (None Seen) Urine Glucose Normal mg/dL (Normal) Microbiology Microbiology Date/Time Source Procedure Growth Status 10/03/24 08:36 Blood Blood Culture - Preliminary NO GROWTH AFTER 72 HOURS OF INCUBATION. Resulted 10/03/24 08:15 Voided Urine Urine Culture - Final Complete Labs and/or images reviewed: Labs reviewed by me Assessment/Plan Assessment/Plan ?Hematuria Mild anemia Generalized weakness Electrolyte imbalance Urinary tract infection Right lymph node per CT, need further investigation. History of uterine cancer, status post total hysterectomy. Right Vulva mass with possible vulva cancer stage III per HEALTH SERVICES ADMINISTRATOR impression. Continue current management. Gabriel has been place by urologist. Did not show any hematuria. Her urine is still clear. Will dc gabriel today. The patient adamant that at home , her urine clear in the morning and gross hematuria at night??? US of pelvis showed: 3.8 cm right inguinal region echogenic lesion measuring 3.8 cm, possibly a pathological lymph node. Further evaluation with PET scan/tissue sampling can be obtained. Hysterectomy. Bilateral ovaries not visualized. Appreciate HEALTH SERVICES ADMINISTRATOR input. 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 Continue IV abx Wating for IR for biopsy of the right inguinal lymph node to rule out malignant. DW family and answer all of question that they have to their satisfy. Patient understand that she need the work up for the vulva mass as soon as possible. Plan discussed with: Patient, Daughter My Orders Orders - VERNA ALLISON MD Procedure Category Date Status Time Hydralazine Injection PHA 10/06/24 In Process (Apresoline Inject 17:15 Lorazepam Tablet PHA 10/06/24 In Process (Ativan Tablet) 17:15 Date of Service: Oct 07, 2024 Billing Provider: VERNA ALLISON MD Common Visit Codes: [id number] INP/OBS CARE(HIGH) VERNA ALLISON MD Oct 07, 2024 11:25
[2024-10-07] MEDS: DOCUSATE SOD 100 MG CAP PO SCH (21:01)
[2024-10-08] VITALS (8 sets, daily range): BP systolic 120–169; BP diastolic 57–89; PULSE 74–96; RESP 16–18; TEMP 97.5–99.4; O2SAT 93–97
[2024-10-08] MEDS: hydrALAZINE HCL 20 MG/ML VL IV PRN (01:19)
--- NOTE | 2024-10-08 10:57 | DVH ---
PROCEDURE: Ultrasound-guided biopsy Procedural Personnel Attending physician(s): Wilian Spear Fellow physician(s): None Resident physician(s): None Advanced practice provider(s): None Procedure Date (//yyyy): 10/08/2024 Pre-procedure diagnosis: Right inguinal adenopathy Post-procedure diagnosis: Same Indication: Histopathologic diagnosis and molecular characterization Previous biopsy of same target: No Additional clinical history: None Complications: No immediate complications. IMPRESSION: Ultrasound-guided biopsy of right inguinal lymph node. Plan: Specimen(s) sent for evaluation. PROCEDURE SUMMARY: - Percutaneous US-guided core needle biopsy - Additional procedure(s): None PROCEDURE DETAILS: Pre-procedure Reference imaging for biopsy target: CT abdomen/pelvis 10/03/24 Consent: Informed consent for the procedure including risks, benefits and alternatives was obtained a nd time-out was performed prior to the procedure. Preparation: The site was prepared and draped using maximal sterile barrier technique including cutan eous antisepsis. Anesthesia/sedation Level of anesthesia/sedation: No sedation Anesthesia/sedation administered by: Not applicable Total intra-service sedation time (minutes): 0 Imaging prior to biopsy The patient was positioned supine. Initial imaging was performed. Biopsy target: - Organ or target location: Lymph Node - Laterality:Right inguinal - Maximal diameter (cm): 2.5 Other findings: None Biopsy Local anesthesia was administered. Under US guidance, the biopsy needle was advanced to the target an d biopsy was performed. Coaxial needle: None Core needle biopsy device: Biopince Core needle size: 18 gauge Number of core specimens: 2 Fine needle aspiration device: NA Fine needle size: Not applicable Number of FNA specimens: Not applicable On-site assessment of biopsy adequacy: No Additional sampling recommendations: None Preliminary assessment of sample adequacy: Not applicable Needle removal The biopsy needle was removed and a sterile dressing was applied. Tract embolization: None Imaging following biopsy Immediate post-biopsy ultrasound was performed. Post-biopsy imaging findings: No significant hemorrhage Additional Details Additional description of procedure: None Registry event: V/3/g Device used: None Equipment details: None Unique Device Identifiers: Not available Specimens removed: Biopsy samples as detailed above Estimated blood loss (mL): Less than 10 Standardized report: [email or web address] Attestation Signer name: Wilian Spear I attest that I was present for the entire procedure. I reviewed the stored images and agree with the report as written.
--- NOTE | 2024-10-08 11:12 | DVHDS2 ---
Discharge Summary Date of Admission Oct 03, 2024 at 14:27 Date of Discharge: Oct 10, 2024 Admitting Diagnosis Hematuria Mild anemia Generalized weakness Electrolyte imbalance Urinary tract infection Right lymph node per CT, need further investigation. History of uterine cancer, status post total hysterectomy. Labs/Diagnostic Data: Laboratory Results Test 10/07/24 17:00 10/07/24 05:43 10/06/24 18:12 10/06/24 17:04 Stool Occult Blood Negative (Negative) Stool Occult Blood Sample #3 (Negative) White Blood Count 9.8 10^3/uL (4.4-10.8) Red Blood Count 3.10 10^6/uL (4.0-5.20) Hemoglobin 9.1 g/dL (12.2-16.2) Hematocrit 27.1 % (36.0-46.0) Mean Corpuscular Volume 87.3 fL (80.0-100.0) Mean Corpuscular Hemoglobin 29.3 pg (28.0-32.0) Mean Corpuscular Hemoglobin Concent 33.6 g/dL (32.0-36.0) Red Cell Distribution Width 13.7 % (11.8-14.3) Platelet Count 247 10^3/uL (140-450) Mean Platelet Volume 8.8 fL (6.9-10.8) Neutrophils (%) (Auto) 58.1 % (37.0-80.0) Lymphocytes (%) (Auto) 28.4 % (10.0-50.0) Monocytes (%) (Auto) 9.5 % (0.0-12.0) Eosinophils (%) (Auto) 3.8 % (0.0-7.0) Basophils (%) (Auto) 0.2 % (0.0-2.0) Neutrophils # (Auto) 5.7 10 ^3/uL (1.6-8.6) Lymphocytes # (Auto) 2.8 10 ^3/uL (0.4-5.4) Monocytes # (Auto) 0.9 10 ^3/uL (0-1.3) Eosinophils # (Auto) 0.4 10 ^3/uL (0-0.8) Basophils # (Auto) 0 10 ^3/uL (0-0.2) Nucleated Red Blood Cells 0.0 % Sodium Level 144 mmol/L (136-145) Potassium Level 3.7 mmol/L (3.5-5.1) Chloride Level 105 mmol/L (98-107) Carbon Dioxide Level 30 mmol/L (20-31) Anion Gap 9 (5-15) Blood Urea Nitrogen 6 mg/dL (9-23) Creatinine 0.60 mg/dL (0.550-1.02) Glomerular Filtration Rate Calc 86 mL/min (>90) BUN/Creatinine Ratio 10.0 (10.0-20.0) Serum Glucose 99 mg/dL (74-106) Calcium Level 9.4 mg/dL (8.7-10.4) Urine Color Light-yellow (Yellow) Urine Clarity Clear (Clear) Urine pH 5.5 (5.0-9.0) Urine Specific [employer] 1.015 (1.001-1.035) Urine Protein Trace (Negative) Urine Ketones 1+ (Negative) Urine Blood 3+ /uL (Negative) Urine Nitrite Negative (Negative) Urine Bilirubin Negative (Negative) Urine Urobilinogen Normal mg/dL (Negative) Urine Leukocyte Esterase 2+ /uL (Negative) Urine RBC 100 /hpf (0 - 4) Urine Microscopic WBC 32 /HPF (0-5) Urine Squamous Epithelial Cells Few /hpf (<5) Urine Bacteria None seen /hpf (None Seen) Urine Mucus Few (None Seen) Urine Glucose Normal mg/dL (Normal) Vancomycin Level Trough 9.6 ug/mL (5-10) Test 10/05/24 06:00 10/03/24 21:35 10/03/24 21:30 10/03/24 10:26 Random Vancomycin Level 6.6 ug/mL (5-10) Influenza Type A Antigen Negative (Negative) Influenza Type B Antigen Negative (Negative) SARS-CoV-2 Antigen (Rapid) Negative (NEGATIVE) Lactic Acid Level 2.5 mmol/L (0.4-2.0) Test 10/03/24 09:31 10/03/24 08:11 POC Glucose 129 mg/dl (70-106) Iron Level 26 ug/dL (50-170) Total Iron Binding Capacity 290 ug/dL (250-425) Percent Iron Saturation 9.0 % (15-50) B-Type Natriuretic Peptide 54.70 pg/mL (0-100) Other Laboratory Tests 10/07/24 05:43 Brief Hx & Hospital Course: This is an 88 years old female come to emergency department with chief complaint of hematuria. Per patient she noticed for the past couple month she had blood in her urine when urinating early in the morning. She said the whole bowl as tolerated is red. She also had generalized weakness and shortness for breath. Patient had a history of uterine cancer when she was 28 years old. Patient had a total hysterectomy but did not remember if she had any chemotherapy done at that time. The patient adamant that her blood come from urine. Urology was consulted. Gonzalez was placed. For two days her Gonzalez was clear, no hematuria. However, the patient stated that at home sometimes she experience no hematuria for couple days and suddenly the blood came. Urology recommend outpatient cystoscopy. I suspect the patient had acute vaginal bleed. Her hemoglobin is stable and did not require any transfusion yet. However I consulted OBGYN. Per her granddaughter the blood did not seen to come from urine. She showed me a picture of her diaper with gross blood in the diaper. The patient also had a right groin lymphadenopathy. Ultrasound of pelvis was done showed 3.8 cm right inguinal region echogenic lesion measuring 3.8 cm, possibly a pathological lymph node. Further evaluation with PET scan/tissue sampling can be obtained. Hysterectomy. Bilateral ovaries not visualized. OBGYN was consulted. saw the patient. He found a right vulvar mass, with ipsilateral adenopathy. His impression is that he is very concerning for at least stage III vulvar cancer. Patient needs higher level of care with outpatient follow up with [facility].Needs tissue biopsy of vulva and possibly of right inguinal lymph node by IR Consider work up for metastasis, PET scan. Treatment based on histological confirmation of malignancy and staging, which may include a combination of surgery (vulvectomy, radical lymphadenectomy, +/- Cisplatin chemo and radiation). The patient subsequently had the right groin lymph node biopsy done. After the biopsy done, the pathologist, Dr. Richards, called me. The sample is not cleared for making diagnosis. She recommend re-biopsy the lymph node. The patient and family agree for re-biopsy. So today the patient had 2nd biopsy in her right inguinal lesion. The patient is stable. The patient does have severe hypoxia in room air. The saturation oxygen dropped to 80% when off oxygen. The patient on two L oxygen continuously. ABG showed hypoxia with P oxygen: 55.2 the patient will be discharged home with 2 L oxygen continuously. Stress with her family that she needs to follow up with the ob/gyn physician/Oncology as soon as possible for further workup of the vulva possible malignancy. Activity as tolerated. Diet per home diet. Follow up with primary care physician 1-2 weeks. Need the referral to ob/gyn physician/Oncology as soon as she can from her primary care doctor. Follow up with Urology for cystoscopy. Physical exam: HEENT: Normocephalic atraumatic pupils equal react to light and accommodation. Extraocular muscles intact, conjunctiva pink, oropharynx moist, no thrush, no exudate. Lymphatic: No lymphadenopathy Cardiovascular exam: S1, S2 was heard. No murmurs, rubs, gallops Lung: Clear on auscultation bilaterally, no wheeze, rale, rhonchi. GI: Abdominal soft, nondistended, nontenderness, positive bowel sounds. Extremity: No crepitus, cyanosis, edema. Pedal pulses present bilateral. Full range of motion. Skin: Normal turgor, no rash. Psych: Alert, oriented x3. Neurology: No focal deficits, cranial nerve II to XII grossly intact. This medical document was created using an electronic medical record system with [employer] direct computerized dictation system. Although this document has been carefully reviewed, there may still be some phonetic and typographical errors. These areas are purely typographical due to imperfections of the software programs, and do not reflect any compromise in the patient's medical care. Condition at Discharge: Stable Final Diagnosis/Problems List ?Hematuria Mild anemia Generalized weakness Electrolyte imbalance Urinary tract infection Right lymph node per CT, need further investigation. History of uterine cancer, status post total hysterectomy. Right Vulva mass with possible vulva cancer stage III per PLATINUM AND PALLADIUM KETTLE TENDER impression. 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 Medications: Resume home meds Miscellaneous Medications Albuterol Sulfate (Albuterol Sulfate (5 mg/ml) 0.5%), 1 NEB IN, (Reported) Levothyroxine Sodium (Levothyroxine Sodium), 88 MCG PO, (Reported) Metoprolol Succinate (Metoprolol Succinate Er), 50 MG PO, (Reported) Simvastatin (Simvastatin), 20 MG PO, (Reported) Discharge Statement: "Patient was advised to return to the ER or call 911 if any headaches, dizziness, shortness of breath, chest pain, abdominal pain, bleeding, fevers, or worsening of medical condition. Patient was counseled about treatment plan, medications, possible side effects, patientverbalized understanding. All questions were answered to the best of my ability. This discharge took greater then 30 minutes in planning, reviewing documentation, counseling the patient, and discussing with other team members." ASSESSMENT ASSESSMENT Assessment UTI, right groin lymph node, vulva lesion Date of Service: Oct 10, 2024 Billing Provider: VERNA ALLISON MD Common Visit Codes: [id number] DISCH DAY >30min VERNA LALISON MD Oct 08, 2024 11:12
[2024-10-08 14:13] LABS: Base Excess 3.7 mmol/L (-2.0-3.0)
[2024-10-09 01:00] VITALS: BP 141/60; PULSE 90; RESP 18; TEMP 98; O2SAT 92
[2024-10-09 09:00] VITALS: BP_SYST 129; BP_SYST 132; BP_SYST 156; BP_DIAS 64; BP_DIAS 75; BP_DIAS 79; PULSE 59; PULSE 74; PULSE 96; RESP 15; RESP 16; RESP 20; TEMP 97.7; TEMP 98; TEMP 98.4; O2SAT 100; O2SAT 94; O2SAT 95
--- NOTE | 2024-10-09 10:54 | DVHPN2 ---
Subjective The patient seen and examined at bedside. The patient feel better, daughter at bedside. The patient is supposed to be discharged yesterday. However oxygen arrangement was not done yet. Still waiting for oxygen tank to delivery to bedside. Reviewed: Care Plan, H&P, Labs, Medications, Previous Orders, Radiology Changes from previous H/P or p: No Changes Objective Vitals Vital Signs Date Time Temp Pulse Resp B/P (MAP) Pulse Ox O2 Delivery O2 Flow Rate FiO2 10/09/24 09:20 96 156/64 10/09/24 09:00 98.4 20 94 98.4 10/08/24 20:00 Room Air* 2 N/A Nasal Cannula* Intake/Output Intake and Output 10/09/24 07:00 Intake Total 1250 ml Balance 1250 ml Intake Oral 1200 ml IV Total 50 ml # Voids 7 General Appearance: Alert, Oriented X3, Cooperative, No acute distress HEENT: Atraumatic, PERRLA, EOMI, Mucous membr. moist/pink Neck: Supple Lungs: Clear to auscultation, Normal air movement Cardiovascular: Regular rate, Normal S1, Normal S2, No murmurs, Gallops, Rubs Neuro: Cranial nerves 3-12 NL Psych/Mental Status: Mental status NL Medications Current Medications Medications Dose Ordered Sig/Cisco Route Start Time Stop Time Status Last Admin Dose Admin Ceftriaxone Sodium 50 ml @ 100 mls/hr DAILY@09 IV 10/04/24 09:00 10/09/24 09:17 100 MLS/HR Ondansetron HCl 4 mg Q4HP PRN IV 10/03/24 14:30 Acetaminophen 650 mg Q6HP PRN PO 10/03/24 14:30 Levothyroxine Sodium 88 mcg QAM@0600 PO 10/04/24 06:00 10/09/24 05:40 88 MCG Metoprolol Succinate 50 mg DAILY PO 10/04/24 10:00 10/09/24 09:20 50 MG Atorvastatin Calcium 20 mg HS PO 10/03/24 22:00 10/08/24 21:08 20 MG Albuterol 2.5 mg Q6HPRN PRN NEB 10/03/24 19:45 Cancel Hydralazine HCl 10 mg Q6HP PRN IV 10/06/24 17:15 10/08/24 01:19 10 MG Lorazepam 0.5 mg Q6HP PRN PO 10/06/24 17:15 Docusate Sodium 100 mg BID PO 10/07/24 22:00 10/09/24 09:18 100 MG Laboratory Results Laboratory Tests 10/07/24 05:43 Urinalysis Test 10/06/24 18:12 Urine Color Light-yellow (Yellow) Urine Clarity Clear (Clear) Urine pH 5.5 (5.0-9.0) Urine Specific [place] 1.015 (1.001-1.035) Urine Protein Trace (Negative) H Urine Ketones 1+ (Negative) H Urine Blood 3+ /uL (Negative) H Urine Nitrite Negative (Negative) Urine Bilirubin Negative (Negative) Urine Urobilinogen Normal mg/dL (Negative) Urine Leukocyte Esterase 2+ /uL (Negative) Urine RBC 100 /hpf (0 - 4) Urine Microscopic WBC 32 /HPF (0-5) H Urine Squamous Epithelial Cells Few /hpf (<5) Urine Bacteria None seen /hpf (None Seen) Urine Mucus Few (None Seen) Urine Glucose Normal mg/dL (Normal) Blood Gas Results Test 10/08/24 14:05 Arterial Blood pH 7.512 (7.350-7.450) FiO2 % 21.0 Microbiology Microbiology Date/Time Source Procedure Growth Status 10/03/24 08:36 Blood Blood Culture - Final NO GROWTH AFTER 5 DAYS OF INCUBATION. Complete 10/03/24 08:15 Voided Urine Urine Culture - Final Complete Labs and/or images reviewed: Labs reviewed by me Assessment/Plan Assessment/Plan ?Hematuria Mild anemia Generalized weakness Electrolyte imbalance Urinary tract infection Right lymph node per CT, need further investigation. History of uterine cancer, status post total hysterectomy. 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 Continue current management. Gabriel has been place by urologist. Did not show any hematuria. Her urine is still clear. Will dc gabriel today. The patient adamant that at home , her urine clear in the morning and gross hematuria at night??? US of pelvis showed: 3.8 cm right inguinal region echogenic lesion measuring 3.8 cm, possibly a pathological lymph node. Further evaluation with PET scan/tissue sampling can be obtained. Hysterectomy. Bilateral ovaries not visualized. Appreciate SAFETY TRAINER input. Patient need HLOC for AUTOMOTIVE PARTS COUNTER ASSOCIATE/Onc to resect the vulva mass and further treatment as outpatient. Continue IV abx The patient is status post biopsy of the right inguinal lymph node yesterday to rule out malignant. Dr. Venice Richards, pathologist called me today. Apparently the biopsy of the inguinal node is not good enough for sample tissue. She could not gather enough tissue to make a diagnosis. She requests me to have another IR consulted for repeat right inguinal lymph node biopsy. I spoke with patient and daughter and they agree to proceed with a repeat biopsy. DW family and answer all of question that they have to their satisfy. Patient understand that she need the work up for the vulva mass as soon as possible. We also waiting for oxygen tank to be delivery at bedside. Discharge when repeat biopsy done and oxygen delivery at bedside. This medical document was created using an electronic medical record system with [employer] direct computerized dictation system. Although this document has been carefully reviewed, there may still be some phonetic and typographical errors. These areas are purely typographical due to imperfections of the software programs, and do not reflect any compromise in the patient's medical care. Plan discussed with: Patient, Daughter My Orders Orders - VERNA ALLISON MD Procedure Category Date Status Time Discharge DISCHARGE 10/08/24 Transmitted 11:08 * Ground Intelligence Officer CONS 10/08/24 Transmitted Consult Abg W/ Co-Ox RT 10/08/24 Logged 13:52 * Ground Intelligence Officer CONS 10/08/24 Transmitted Consult Date of Service: Oct 09, 2024 Billing Provider: VERNA ALLISON MD Common Visit Codes: [id number] INP/OBS CARE(HIGH) VERNA ALLISON MD Oct 09, 2024 10:54
[2024-10-09 11:52] VITALS: BP 138/72; PULSE 88; RESP 17; TEMP 36.9; O2SAT 97
[2024-10-09 13:00] VITALS: BP 151/69; PULSE 75; RESP 16; TEMP 98.3; O2SAT 94
[2024-10-09 16:51] VITALS: BP 132/69; PULSE 88; RESP 18; TEMP 98.4; O2SAT 94
[2024-10-09 21:00] VITALS: BP 145/68; PULSE 85; RESP 16; TEMP 98.1; O2SAT 93
[2024-10-10 01:00] VITALS: BP 136/61; PULSE 85; RESP 16; TEMP 97.8; O2SAT 93
[2024-10-10 05:00] VITALS: BP 129/62; PULSE 87; RESP 18; TEMP 98.1; O2SAT 94
[2024-10-10 09:00] VITALS: BP 149/74; PULSE 89; RESP 16; TEMP 99.2; O2SAT 97
--- NOTE | 2024-10-10 09:51 | DVH ---
PROCEDURE: Ultrasound-guided biopsy Procedural Personnel Attending physician(s): Wilian Spear Fellow physician(s): None Resident physician(s): None Advanced practice provider(s): None Procedure Date (//yyyy): 10/10/2024 Pre-procedure diagnosis: Right inguinal adenopathy Post-procedure diagnosis: Same Indication: Histopathologic diagnosis Previous biopsy of same target: Yes- repeat biopsy due to sample inadequacy from prior biopsy at this institution Additional clinical history: None Complications: No immediate complications. IMPRESSION: Ultrasound-guided biopsy of right inguinal lymph node with 5 cc caseous material aspirated and 10 cor e biopsies obtained. Plan: Specimen(s) sent for evaluation. Should sample again be inadequate and pathology is still required, i nguinal lymph node dissection should be considered. PROCEDURE SUMMARY: - Percutaneous US-guided coaxial core needle biopsy - Additional procedure(s): None PROCEDURE DETAILS: Pre-procedure Reference imaging for biopsy target: 10/04/2024 Consent: Informed consent for the procedure including risks, benefits and alternatives was obtained a nd time-out was performed prior to the procedure. Preparation: The site was prepared and draped using maximal sterile barrier technique including cutan eous antisepsis. Anesthesia/sedation Level of anesthesia/sedation: No sedation Anesthesia/sedation administered by: Not applicable Total intra-service sedation time (minutes): 0 Imaging prior to biopsy The patient was positioned supine. Initial imaging was performed. Biopsy target: - Organ or target location: Lymph Node - Laterality: Right inguinal - Maximal diameter (cm): 3.6 Other findings: None Biopsy Local anesthesia was administered. Under US guidance, the biopsy needle was advanced to the target an d biopsy was performed. Coaxial needle: 17 gauge Core needle biopsy device: [employer] Core needle size: 18 gauge Number of core specimens: 10 Aspirate volume: 5 cc, caseous On-site assessment of biopsy adequacy: No Additional sampling recommendations: None Preliminary assessment of sample adequacy: Not applicable Needle removal The biopsy needle was removed and a sterile dressing was applied. Tract embolization: None Imaging following biopsy Immediate post-biopsy ultrasound was performed. Post-biopsy imaging findings: No significant hemorrhage Additional Details Additional description of procedure: None Registry event: V/3/g Device used: None Equipment details: None Unique Device Identifiers: Not available Specimens removed: Biopsy samples as detailed above Estimated blood loss (mL): Less than 10 Standardized report: [email or web address] Attestation Signer name: iWlian Spear I attest that I was present for the entire procedure. I reviewed the stored images and agree with the report as written.
--- NOTE | 2024-10-10 11:16 | DVHPN2 ---
Subjective The patient seen and examined at bedside. The patient feel better, daughter at bedside. The patient is supposed to be discharged yesterday. However oxygen arrangement was not done yet. Still waiting for oxygen tank to delivery to bedside. Reviewed: Care Plan, H&P, Labs, Medications, Previous Orders, Radiology Objective Vitals Vital Signs Date Time Temp Pulse Resp B/P (MAP) Pulse Ox O2 Delivery O2 Flow Rate FiO2 10/10/24 09:43 89 149/74 10/10/24 08:00 Nasal Cannula* 1 24 10/10/24 05:00 98.1 18 94 98.1 Intake/Output Intake and Output 10/10/24 07:00 Intake Total 2200 ml Balance 2200 ml Intake Oral 2200 ml # Voids 6 # Bowel Movements 2 General Appearance: Alert, Oriented X3, Cooperative, No acute distress HEENT: Atraumatic, PERRLA, EOMI, Mucous membr. moist/pink Neck: Supple Lungs: Clear to auscultation, Normal air movement Cardiovascular: Regular rate, Normal S1, Normal S2, No murmurs, Gallops, Rubs Neuro: Cranial nerves 3-12 NL Psych/Mental Status: Mental status NL Medications Current Medications Medications Dose Ordered Sig/Cisco Route Start Time Stop Time Status Last Admin Dose Admin Ceftriaxone Sodium 50 ml @ 100 mls/hr DAILY@09 IV 10/04/24 09:00 10/09/24 09:17 100 MLS/HR Ondansetron HCl 4 mg Q4HP PRN IV 10/03/24 14:30 Acetaminophen 650 mg Q6HP PRN PO 10/03/24 14:30 Levothyroxine Sodium 88 mcg QAM@0600 PO 10/04/24 06:00 10/10/24 06:37 88 MCG Metoprolol Succinate 50 mg DAILY PO 10/04/24 10:00 10/10/24 09:43 50 MG Atorvastatin Calcium 20 mg HS PO 10/03/24 22:00 10/09/24 21:30 20 MG Albuterol 2.5 mg Q6HPRN PRN NEB 10/03/24 19:45 Cancel Hydralazine HCl 10 mg Q6HP PRN IV 10/06/24 17:15 10/08/24 01:19 10 MG Lorazepam 0.5 mg Q6HP PRN PO 10/06/24 17:15 Docusate Sodium 100 mg BID PO 10/07/24 22:00 10/10/24 09:40 100 MG Laboratory Results Laboratory Tests 10/07/24 05:43 Urinalysis Test 10/06/24 18:12 Urine Color Light-yellow (Yellow) Urine Clarity Clear (Clear) Urine pH 5.5 (5.0-9.0) Urine Specific [place] 1.015 (1.001-1.035) Urine Protein Trace (Negative) H Urine Ketones 1+ (Negative) H Urine Blood 3+ /uL (Negative) H Urine Nitrite Negative (Negative) Urine Bilirubin Negative (Negative) Urine Urobilinogen Normal mg/dL (Negative) Urine Leukocyte Esterase 2+ /uL (Negative) Urine RBC 100 /hpf (0 - 4) Urine Microscopic WBC 32 /HPF (0-5) H Urine Squamous Epithelial Cells Few /hpf (<5) Urine Bacteria None seen /hpf (None Seen) Urine Mucus Few (None Seen) Urine Glucose Normal mg/dL (Normal) Microbiology Microbiology Date/Time Source Procedure Growth Status 10/03/24 08:36 Blood Blood Culture - Final NO GROWTH AFTER 5 DAYS OF INCUBATION. Complete 10/03/24 08:15 Voided Urine Urine Culture - Final Complete Assessment/Plan Assessment/Plan ?Hematuria Mild anemia Generalized weakness Electrolyte imbalance Urinary tract infection Right lymph node per CT, need further investigation. History of uterine cancer, status post total hysterectomy. 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 Continue current management. Gabriel has been place by urologist. Did not show any hematuria. Her urine is still clear. Will dc gabriel today. The patient adamant that at home , her urine clear in the morning and gross hematuria at night??? US of pelvis showed: 3.8 cm right inguinal region echogenic lesion measuring 3.8 cm, possibly a pathological lymph node. Further evaluation with PET scan/tissue sampling can be obtained. Hysterectomy. Bilateral ovaries not visualized. Appreciate BEADING INSTALLER input. Patient need OC for FRUIT AND VEGETABLE PARER/Onc to resect the vulva mass and further treatment as outpatient. Continue IV abx The patient is status post biopsy of the right inguinal lymph node yesterday to rule out malignant. Dr. Venice Richards, pathologist called me today. Apparently the biopsy of the inguinal node is not good enough for sample tissue. She could not gather enough tissue to make a diagnosis. She requests me to have another IR consulted for repeat right inguinal lymph node biopsy. I spoke with patient and daughter and they agree to proceed with a repeat biopsy. DW family and answer all of question that they have to their satisfy. Patient understand that she need the work up for the vulva mass as soon as possible. We also waiting for oxygen tank to be delivery at bedside. Discharge when repeat biopsy done and oxygen delivery at bedside. This medical document was created using an electronic medical record system with [employer] direct computerized dictation system. Although this document has been carefully reviewed, there may still be some phonetic and typographical errors. These areas are purely typographical due to imperfections of the software programs, and do not reflect any compromise in the patient's medical care. My Orders Orders - VERNA ALLISON MD Procedure Category Date Status Time * Radiologist Consult CONS 10/09/24 Transmitted 15:03 Us Guidance For US 10/10/24 Resulted Needle Placeme 08:28 Discharge DISCHARGE 10/10/24 Transmitted 09:44 VERNA ALLISON MD Oct 10, 2024 11:16
[2024-10-10] MEDS ORDERED: LIDOCAINE 2%HCL (LOCAL ANESTH.) INJ 10ml MDV ONE (12:53)
== END 2024-10-10 10:20 | disposition home or self-care (01) | DRG 749 ==
LOC: ER 07:54 → OVERFLOW 14:27 → CENTRAL 15:20
PROVIDERS: ADMIT Internal Medicine; ATTEND Internal Medicine
PROC: 07BH3ZX Excision of Right Inguinal Lymphatic, Percutaneous Approach, Diagnostic (ICD-10-PCS; principal; 2024-10-08)
PROC: 07BH3ZX Excision of Right Inguinal Lymphatic, Percutaneous Approach, Diagnostic (ICD-10-PCS; 2024-10-10)
DX: C51.9 Malignant neoplasm of vulva, unspecified (principal); C77.4 Secondary and unspecified malignant neoplasm of inguinal and lower limb lymph nodes; N39.0 Urinary tract infection, site not specified; Z99.81 Dependence on supplemental oxygen; D64.9 Anemia, unspecified; E03.9 Hypothyroidism, unspecified; I10 Essential (primary) hypertension; N93.9 Abnormal uterine and vaginal bleeding, unspecified; Z20.822 Contact with and (suspected) exposure to COVID-19; R31.0 Gross hematuria; N90.89 Other specified noninflammatory disorders of vulva and perineum; K57.30 Diverticulosis of large intestine without perforation or abscess without bleeding; E78.5 Hyperlipidemia, unspecified; Z90.49 Acquired absence of other specified parts of digestive tract; Z90.710 Acquired absence of both cervix and uterus; Z87.891 Personal history of nicotine dependence; Z85.42 Personal history of malignant neoplasm of other parts of uterus; Z85.41 Personal history of malignant neoplasm of cervix uteri; Z88.8 Allergy status to other drugs, medicaments and biological substances
CPT/HCPCS: 10005; 36415; 36600; 71045; 74177; 76856; 76942; 80048; 80202; 81001; 82270; 82565; 82805; 82962; 83540; 83550; 83605; 83880; 85025; 86850; 86900; 86901; 87040; 87086; 87426; 87804; 93005; 97110; 97116; 97163; G0378; J2003; J2405

== ENCOUNTER 2024-10-15 11:45 | Outpatient (CLI) | payer OTHER ==
[~2024-10-15 11:45] MED LIST: ALBU1NEB5 IN; LEVO88CA3 PO; METO-289 PO; SIMV20TA20 PO
[2024-10-15 12:06] LABS: Hematocrit 29.0 % (36.0-46.0); Hemoglobin 9.3 g/dL (12.2-16.2); Mean Corpuscular Hemoglobin 27.4 pg (28.0-32.0); Mean Corpuscular Volume 85.3 fL (80.0-100.0); Nucleated Red Blood Cells % 0.0 %
[2024-10-15 12:21] LABS: Anion Gap 8 (5-15); Chloride 102 mmol/L (98-107); Potassium 3.5 mmol/L (3.5-5.1); Sodium 143 mmol/L (136-145)
[2024-10-15 12:22] LABS: Calcium 9.3 mg/dL (8.7-10.4)
[2024-10-15 12:27] LABS: BUN/Creatinine Ratio 16.9 (10.0-20.0); Blood Urea Nitrogen 12 mg/dL (9-23); Glucose 105 mg/dL (74-106)
[2024-10-15 12:29] LABS: Carbon Dioxide 33 mmol/L (20-31)
== END 2024-10-15 17:00 | disposition home or self-care (01) ==
LOC: LAB 11:45
PROVIDERS: ATTEND Internal Medicine
DX: D64.9 Anemia, unspecified (principal)
CPT/HCPCS: 36415; 80048; 85025

== ENCOUNTER 2024-10-21 15:03 | Outpatient (CLI) | payer OTHER ==
[2024-10-21 15:55] LABS: Hematocrit 30.1 % (36.0-46.0); Hemoglobin 9.6 g/dL (12.2-16.2)
[2024-10-22 13:36] LABS: Urine Protein, UAD TRACE (Negative)
== END 2024-10-21 17:00 | disposition home or self-care (01) ==
LOC: LAB 15:03
PROVIDERS: ATTEND Internal Medicine
DX: R31.0 Gross hematuria (principal); D64.9 Anemia, unspecified
CPT/HCPCS: 36415; 81001; 85014; 85018

== ENCOUNTER 2025-01-27 08:36 | Outpatient (CLI) | payer OTHER ==
[~2025-01-27 08:36] MED LIST changes: +CEPH500C PO
--- NOTE | 2025-01-29 12:49 | DVHNC2 ---
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 Significant bronchodilator response. FVC improved by 330 mL. FEV1 improved by 120 mL. Unable to do lung volume measurements. Severe reduction in diffusion capacity, not corrected for patient's hemoglobin. 27% of predicted. Procedure Codes: CPT 63262-09 CPT 76261-02 CPT 22430-18 Visit Coding Pulmonary Billing Provider: ALICIA VAUGHN MD Date of Service if different f: Jan 27, 2025 Common Visit Codes: PROCEDURE ONLY Pulmonary Procedure Codes: 69695-02- SPIROMETRY, 73802-00- LUNG VOLUME, 70112-15- DIFFUSION CAPACITY ALICIA VAUGHN MD Jan 29, 2025 12:49
== END 2025-01-27 17:00 | disposition home or self-care (01) ==
LOC: RT 08:36
PROVIDERS: ATTEND Internal Medicine Pulmonary Disease
DX: J44.9 Chronic obstructive pulmonary disease, unspecified (principal); R06.9 Unspecified abnormalities of breathing
CPT/HCPCS: 94060; 94727; 94729

== ENCOUNTER 2025-02-11 11:14 | Outpatient (CLI) | payer OTHER ==
[2025-02-11 11:59] LABS: Hemoglobin 8.0 g/dL (12.2-16.2); Nucleated Red Blood Cells % 0.0 %
[2025-02-11 12:01] LABS: Hematocrit 28.5 % (36.0-46.0); Mean Corpuscular Hemoglobin 17.5 pg (28.0-32.0); Mean Corpuscular Volume 62.0 fL (80.0-100.0)
[2025-02-11 12:40] LABS: Albumin 3.9 g/dL (3.2-4.8); Alkaline Phosphatase 87 U/L (46-116); Anion Gap 9 (5-15); BUN/Creatinine Ratio 15.6 (10.0-20.0); Blood Urea Nitrogen 10 mg/dL (9-23); Calcium 9.1 mg/dL (8.7-10.4); Carbon Dioxide 29 mmol/L (20-31); Chloride 106 mmol/L (98-107); Glucose 94 mg/dL (74-106); Potassium 4.1 mmol/L (3.5-5.1); Sodium 144 mmol/L (136-145); Total Protein 6.9 g/dL (5.7-8.2); Triglycerides 101 mg/dL (< 150)
[2025-02-11 12:41] LABS: Bilirubin, Total 0.4 mg/dL (0.2-1.0); Cholesterol 119 mg/dL (< 200); HDL Cholesterol 48 mg/dL (40-59)
[2025-02-11 12:46] LABS: Alanine Aminotransferase < 9 U/L (7-40)
[2025-02-11 12:49] LABS: Urine Protein, UAD TRACE (Negative)
== END 2025-02-11 17:00 | disposition home or self-care (01) ==
LOC: LAB 11:14
PROVIDERS: ATTEND Internal Medicine
DX: Z00.00 Encounter for general adult medical examination without abnormal findings (principal)
CPT/HCPCS: 36415; 80053; 80061; 81001; 83036; 84439; 84443; 85025

== ENCOUNTER 2025-02-24 08:08 | Outpatient (CLI) | payer OTHER ==
[2025-02-24 08:25] LABS: Hematocrit 26.2 % (36.0-46.0); Hemoglobin 7.4 g/dL (12.2-16.2); Mean Corpuscular Hemoglobin 17.4 pg (28.0-32.0); Mean Corpuscular Volume 61.7 fL (80.0-100.0); Nucleated Red Blood Cells % 0.0 %
== END 2025-02-24 17:00 | disposition home or self-care (01) ==
LOC: LAB 08:08
PROVIDERS: ATTEND Internal Medicine
DX: D64.9 Anemia, unspecified (principal)
CPT/HCPCS: 36415; 85025